=== PATIENT | female | born 1995 | race Caucasian/White ===

== ENCOUNTER 2018-06-25 14:21 | Emergency (ER) | payer OTHER, MEDICAID ==
[2018-06-25 14:34] VITALS: BP 136/80
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
--- NOTE | 2018-06-25 16:20 | CT ---
CT cervical spine Technique: Multiple axial sections were obtained from above C1 inferiorly to the mid T2 vertebral body. Reconstructed sagittal and coronal images were reviewed. Findings: Mild disc space narrowing is noted at C6-C7. Several incidental cysts are noted within the C6 vertebral body. Posterior skull base is intact. No fracture is identified. No bony central or bony neural foraminal stenosis is seen. No abnormal subluxation is seen. Impression: 1. Minimal degenerative change. 2. Nothing acute is seen on CT study of the cervical spine. Diagnostic code #2
--- NOTE | 2018-06-25 16:22 | CT ---
Head CT Technique: Multiple axial sections through the brain were obtained. Intravenous contrast was not utilized. Comparison: No previous intracranial imaging. Findings: Ventricles along with basal cisterns and sulci over the convexities are within normal limits for the patient's age. No abnormal parenchymal densities are seen. No evidence of intracranial hemorrhage. No midline shift or mass effect is seen. Bone window settings were reviewed which shows no acute calvarial abnormality. Visualized sinuses are clear. Impression: 1. Nothing acute is appreciated on noncontrast head CT study. Diagnostic code #1
--- NOTE | 2018-06-26 06:51 | CR ---
Chest: Two views of the chest were obtained. Comparison: Previous chest x-ray of 06/29/15. Heart size and mediastinum are normal. Lungs are clear. Mild pectus excavatum deformity is seen. Impression: 1. Mild pectus excavatum deformity. 2. Nothing acute is seen on two-view chest x-ray. Diagnostic code #2
== END 2018-06-25 17:06 | disposition home or self-care (01) ==
LOC: JD.ED 14:21
DX: S13.4XXA Sprain of ligaments of cervical spine, initial encounter (principal); F17.210 Nicotine dependence, cigarettes, uncomplicated; F41.9 Anxiety disorder, unspecified; V48.5XXA Car driver injured in noncollision transport accident in traffic accident, initial encounter
CPT/HCPCS: 70450; 70450-26; 71046; 71046-26; 72125; 72125-26; 99284-25

== ENCOUNTER 2020-04-22 18:11 | Emergency (ER) | payer BC, MEDICAID ==
[2020-04-22 18:19] VITALS: BP 117/81; PULSE 120
[2020-04-22] MEDS ORDERED: LORazepam 2 MG/ML SDV IVPUSH ONE (18:41)
[2020-04-22] MEDS ORDERED: Ondansetron 4 MG/2 ML SDV IVPUSH ONE (18:42)
[2020-04-22] MEDS ORDERED: Sodium Chloride 0.9% 1,000 ML IV ONE ×2 (19:06→21:59)
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
== END 2020-04-23 04:09 | disposition home or self-care (01) ==
LOC: JD.ED 18:11
DX: R41.82 Altered mental status, unspecified (principal); F19.129 Other psychoactive substance abuse with intoxication, unspecified; F17.210 Nicotine dependence, cigarettes, uncomplicated; Z88.8 Allergy status to other drugs, medicaments and biological substances
CPT/HCPCS: 36415; 80053; 80306; 80307; 83735; 85025; 96374; 96375; 99284; J2060; J2405; J7030

== ENCOUNTER 2020-09-01 16:02 | Emergency (ER) | payer BC, MEDICAID ==
[2020-09-01 16:36] VITALS: BP 124/96; PULSE 103
[2020-09-01] MEDS ORDERED: LORazepam 2 MG/ML SDV IVPUSH ONE (16:45)
[2020-09-01] MEDS ORDERED: Sodium Chloride 0.9% 10 ML Syringe FLUSH PRN (16:45)
--- NOTE | 2020-09-01 17:02 | EDM.PDOC ---
ED HPI GENERAL MEDICAL PROBLEM - General Chief Complaint: Abdominal Pain Stated Complaint: LOWER ABDOMINAL PAIN Time Seen by Provider: 09/01/20 16:27 Source of Information: Reports: Patient, RN Notes Reviewed History Limitations: Reports: No Limitations - History of Present Illness INITIAL COMMENTS - FREE TEXT/NARRATIVE: Patient is a 25-year-old female who presents to the ED for the evaluation of her pelvic symptoms. She notes that she has been having lower abdominal pain, that seems to focus to the right side for the last 2 days. She states that it kind of started in her back and then sat forward to her abdomen, she points to her very low pelvis as a source of pain. She has not been able to take anything at home that made the pain better or worse. She is having nausea and vomiting, and some diarrhea along with the pain. She states that she did start her period yesterday, but today it became very heavy with bright red blood and clots. She is having pelvic cramping and feels quite bloated. She also notes that she felt nauseous this morning and, she was puking and had a fever. She has no dysuria, frequency or urgency, but notes she has had a history of kidney functions in the past. She notes that the back pain started 3 days ago, and then the vaginal bleeding started after this. Patient notes that she has been having unprotected sex, so there is a chance that she could be . She states that she remembers her last period prior to this one, was in June. Lower Abdomen Pain Score (Numeric/FACES): 8 - Related Data Allergies Allergy/AdvReac Type Severity Reaction Status Date / Time pregabalin [From Lyrica] Allergy Severe Delusions Verified 09/01/20 16:36 sertraline [From Zoloft] Allergy Severe Sweating Verified 09/01/20 16:36 tramadol Allergy Severe Sweating Verified 09/01/20 16:36 Home Meds: Home Meds Acetaminophen [Tylenol] 2 tab PO ASDIRECTED PRN 08/07/19 [History] Multivitamin [Multi-Vitamin Daily] 1 tab PO DAILY 08/07/19 [History] Cefdinir [Omnicef] 300 mg PO BID 10 Days #20 cap 09/01/20 [Rx] Past Medical History HEENT History: Reports: Other (See Below) Genitourinary History: Reports: Other (See Below) Other Genitourinary History: Kidney infection 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: , 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 Musculoskeletal History: Reports: Back Pain, Chronic Neurological History: Reports: Other (See Below) Other Neuro History: pt states she had a stroke, and now her left arm randomly goes numb at times Psychiatric History: Reports: Anxiety Other Psychiatric History: Post depression Endocrine/Metabolic History: Reports: Hyperthyroidism Other Endocrine/Metabolic History: thyroid dysfunction is Other Hematologic History: anemia in - Past Surgical History HEENT Surgical History: Reports: Adenoidectomy, Naso-Sinus Surgery, Tonsillectomy Other HEENT Surgeries/Procedures: tubes placed bilateral ears Social & Family History - Family History Family Medical History: No Pertinent Family History HEENT: Reports: Cataract GI: Reports: Cirrhosis : Reports: Diabetic Nephropathy Musculoskeletal: Reports: Osteoarthritis, Other (See Below) Other Musculoskeletal Family History: carpal tunel Neurological: Reports: Migraines Dermatologic: Reports: Psoriasis Oncologic: Reports: Breast, Ovarian, Skin - Caffeine Use Caffeine Use: Reports: Energy Drinks, Soda ED ROS GENERAL - Review of Systems Review Of Systems: Comprehensive ROS is negative, except as noted in HPI. ED EXAM, RENAL/ - Physical Exam Exam: See Below Exam Limited By: No Limitations General Appearance: Alert, WD/WN, No Apparent Distress, Anxious (generalized) Respiratory/Chest: No Respiratory Distress, Lungs Clear, Normal Breath Sounds, No Accessory Muscle Use, Chest Non-Tender Cardiovascular: Normal Peripheral Pulses, Regular Rate, Rhythm, No Edema GI/Abdominal: Normal Bowel Sounds, Soft, No Distention, No Mass, Tender (RLQ/pelvic pain) Extremities: Normal Inspection, Normal Capillary Refill Neurological: Alert, Oriented, Normal Cognition, No Motor/Sensory Deficits Psychiatric: Anxious Skin Exam: Warm, Dry, Intact, Normal Color, No Rash Course - Vital Signs Last Recorded V/S: Last Vital Signs Temp 98.3 F 09/01/20 16:27 Pulse 103 H 09/01/20 16:27 Resp 18 09/01/20 16:27 BP 124/96 H 09/01/20 16:27 Pulse Ox 100 09/01/20 16:27 - Orders/Labs/Meds Orders: Active Orders 24 hr Category Date Time Status Peripheral IV Care [RC] . DIRECTED Care 09/01/20 16:45 Ordered Abdomen Pelvis w Cont [CT] Stat Exams 09/01/20 17:51 Ordered Sodium Chloride 0.9% [Saline Flush] Med 09/01/20 18:15 Active 10 ml FLUSH ASDIRECTED Sodium Chloride 0.9% [Saline Flush] Med 09/01/20 16:45 Ordered 10 ml FLUSH ASDIRECTED PRN Peripheral IV Insertion Adult [OM.PC] Routine Oth 09/01/20 16:45 Ordered Medication Orders Sodium Chloride (Sodium Chloride 0.9% 10 Ml Syringe) 10 ml FLUSH ASDIRECTED PRN PRN Reason: Keep Vein Open Sodium Chloride (Sodium Chloride 0.9% 10 Ml Syringe) 10 ml FLUSH ASDIRECTED FABIENNE Labs: Laboratory Tests 09/01/20 09/01/20 09/01/20 Range/Units 16:58 16:58 16:58 WBC 15.83 H (3.98-10.04) K/mm3 RBC 5.85 H (3.98-5.22) M/mm3 Hgb 16.0 H (11.2-15.7) gm/dl Hct 49.4 H (34.1-44.9) % MCV 84.4 (79.4-94.8) fl MCH 27.4 (25.6-32.2) pg MCHC 32.4 (32.2-35.5) g/dl RDW Std Deviation 43.6 (36.4-46.3) fL Plt Count 173 L (182-369) K/mm3 MPV 10.6 (9.4-12.3) fl Neutrophils % (Manual) 89 H (40-60) % Band Neutrophils % 1 (0-10) % Lymphocytes % (Manual) 6 L (20-40) % Atypical Lymphs % 0 % Monocytes % (Manual) 2 (2-10) % Eosinophils % (Manual) 2 (0.7-5.8) % Basophils % (Manual) 0 L (0.1-1.2) Platelet Estimate Adequate RBC Morph Comment Normal Sodium 137 (136-145) mEq/L Potassium 3.9 (3.5-5.1) mEq/L Chloride 98 (98-107) mEq/L Carbon Dioxide 25 (21-32) mEq/L Anion Gap 17.9 H (5-15) BUN 15 (7-18) mg/dL Creatinine 0.9 (0.55-1.02) mg/dL Est Cr Clr Drug Dosing 80.26 mL/min Estimated GFR (MDRD) > 60 (>60) mL/min BUN/Creatinine Ratio 16.7 (14-18) Glucose 113 H (74-106) mg/dL Calcium 9.0 (8.5-10.1) mg/dL Total Bilirubin 0.5 (0.2-1.0) mg/dL AST 11 L (15-37) U/L ALT 27 (14-59) U/L Alkaline Phosphatase 121 H (46-116) U/L C-Reactive Protein 7.0 H* (<1.0) mg/dL Total Protein 7.9 (6.4-8.2) g/dl Albumin 3.8 (3.4-5.0) g/dl Globulin 4.1 gm/dL Albumin/Globulin Ratio 0.9 L (1-2) HCG, Qual Negative (NEGATIVE) Urine Color (Yellow) Urine Appearance (Clear) Urine pH (5.0-8.0) Ur Specific [place] (1.005-1.030) Urine Protein (Negative) Urine Glucose (UA) (Negative) Urine Ketones (Negative) Urine Occult Blood (Negative) Urine Nitrite (Negative) Urine Bilirubin (Negative) Urine Urobilinogen (0.2-1.0) Ur Leukocyte Esterase (Negative) Urine RBC (0-5) /hpf Urine WBC (0-5) /hpf Ur Squamous Epith Cells (0-5) /hpf Urine Bacteria (FEW) /hpf Urine Mucus (FEW) /hpf Influenza Type A RNA (NEGATIVE) Influenza Type B RNA (NEGATIVE) SARS-CoV-2 RNA (YOSI) (NEGATIVE) 09/01/20 09/01/20 Range/Units 17:44 17:52 WBC (3.98-10.04) K/mm3 RBC (3.98-5.22) M/mm3 Hgb (11.2-15.7) gm/dl Hct (34.1-44.9) % MCV (79.4-94.8) fl MCH (25.6-32.2) pg MCHC (32.2-35.5) g/dl RDW Std Deviation (36.4-46.3) fL Plt Count (182-369) K/mm3 MPV (9.4-12.3) fl Neutrophils % (Manual) (40-60) % Band Neutrophils % (0-10) % Lymphocytes % (Manual) (20-40) % Atypical Lymphs % % Monocytes % (Manual) (2-10) % Eosinophils % (Manual) (0.7-5.8) % Basophils % (Manual) (0.1-1.2) Platelet Estimate RBC Morph Comment Sodium (136-145) mEq/L Potassium (3.5-5.1) mEq/L Chloride (98-107) mEq/L Carbon Dioxide (21-32) mEq/L Anion Gap (5-15) BUN (7-18) mg/dL Creatinine (0.55-1.02) mg/dL Est Cr Clr Drug Dosing mL/min Estimated GFR (MDRD) (>60) mL/min BUN/Creatinine Ratio (14-18) Glucose (74-106) mg/dL Calcium (8.5-10.1) mg/dL Total Bilirubin (0.2-1.0) mg/dL AST (15-37) U/L ALT (14-59) U/L Alkaline Phosphatase (46-116) U/L C-Reactive Protein (<1.0) mg/dL Total Protein (6.4-8.2) g/dl Albumin (3.4-5.0) g/dl Globulin gm/dL Albumin/Globulin Ratio (1-2) HCG, Qual (NEGATIVE) Urine Color Yellow (Yellow) Urine Appearance Slt cloudy H (Clear) Urine pH 6.0 (5.0-8.0) Ur Specific [place] 1.020 (1.005-1.030) Urine Protein Negative (Negative) Urine Glucose (UA) Negative (Negative) Urine Ketones Negative (Negative) Urine Occult Blood Trace-lysed H (Negative) Urine Nitrite Negative (Negative) Urine Bilirubin Negative (Negative) Urine Urobilinogen 0.2 (0.2-1.0) Ur Leukocyte Esterase 1+ H (Negative) Urine RBC 0-5 (0-5) /hpf Urine WBC 5-10 H (0-5) /hpf Ur Squamous Epith Cells 5-10 H (0-5) /hpf Urine Bacteria Few (FEW) /hpf Urine Mucus Many H (FEW) /hpf Influenza Type A RNA Negative (NEGATIVE) Influenza Type B RNA Negative (NEGATIVE) SARS-CoV-2 RNA (YOSI) Negative (NEGATIVE) Meds: Medications Generic Name Dose Route Start Last Admin Trade Name Shantel PRN Reason Stop Dose Admin Sodium Chloride 10 ml 09/01/20 16:45 Sodium Chloride 0.9% 10 Ml Syringe FLUSH ASDIRECTED PRN Keep Vein Open Sodium Chloride 10 ml 09/01/20 18:15 Sodium Chloride 0.9% 10 Ml Syringe FLUSH ASDIRECTED FABIENNE Discontinued Medications Generic Name Dose Route Start Last Admin Trade Name Shantel PRN Reason Stop Dose Admin Acetaminophen 650 mg 09/01/20 17:13 09/01/20 17:23 Acetaminophen 325 Mg Tab PO 09/01/20 17:14 650 mg NOW ONE Administration Diatrizoate Meglum/Diatrizoate Sod 120 ml 09/01/20 18:15 Diatrizoate Meglumine/Diatrizoate Sodium 37% 120 Ml Bottle PO 09/01/20 18:16 ONETIME ONE Ceftriaxone Sodium 2 gm/ 100 mls @ 200 mls/hr 09/01/20 19:56 09/01/20 20:14 Sodium Chloride IV 09/01/20 20:25 200 mls/hr ONETIME ONE Administration Iopamidol 100 ml 09/01/20 18:15 Iopamidol 612 Mg/Ml 100 Ml Bottle IVPUSH 09/01/20 18:16 ONETIME ONE Lorazepam 1 mg 09/01/20 16:45 09/01/20 17:07 Lorazepam 2 Mg/Ml Sdv IVPUSH 09/01/20 16:46 1 mg ONETIME ONE Administration - Re-Assessments/Exams Free Text/Narrative Re-Assessment/Exam: 09/01/20 17:20 Patient presents to the ED for her vaginal bleeding, abdominal pain, and low back pain. Initially suspect and rule out ectopic due to unprotected sex history. She is still having pain in her right lower quadrant, if her hCG test comes back negative, we will go forward with CT for possible appendicitis due to her fever and abdomen pain in her right lower quadrant. 09/01/20 17:52 Patient labs have started to result, her hCG is negative for today's purposes, so I have ordered abdomen pelvis CT with IV and oral contrast. CRP is elevated at 7.0, CMP is essentially unremarkable, CBC is still pending at this time. 09/01/20 18:04 CBC has come back, patient's white count is elevated at 15.3 with 89% neutrophils and 1 band. 09/01/20 19:59 CT has been performed, the appendix does appear to be normal. There is some form of nonspecific enterocolitis that may be present. Potential differential diagnosis include infectious processes, inflammatory processes as well as ischemic etiologies but considering the patient's age ischemic etiologies could be unlikely. Nonuniform anterior nephrogram on the left with other vague lucencies in the renal cortices bilaterally consider pyelonephritis. Patient's urinalysis was positive for leukocyte Estrace, and white blood cells along with squamous epithelial cells, this was a quick catheterized specimen, so it could be consistent with a pyelonephritis. We will go ahead and give the patient 2 g Rocephin, give her outpatient oral antibiotics after this and have her follow-up if she is not much better in 48 hours. Departure - Departure Time of Disposition: 20:41 Disposition: Home, Self-Care 01 Condition: Good Clinical Impression: Pyelonephritis - Discharge Information *PRESCRIPTION DRUG MONITORING PROGRAM REVIEWED*: No *COPY OF PRESCRIPTION DRUG MONITORING REPORT IN PATIENT LUCY: No Prescriptions: Cefdinir [Omnicef] 300 mg PO BID 10 Days #20 cap Instructions: Pyelonephritis, Adult, [id number] Referrals: PCP,None [Primary Care Provider] - Forms: ED Department Discharge Additional Instructions: You have been evaluated in the ED for your urinary symptoms. Your urinalysis was consistent with an acute urinary tract infection. Your urine was sent for culture, and you will be notified if you should need a change in your antibiotic. This may take up to [address] also demonstrated signs of pyelonephritis, which is a kidney infection. You have been given a prescription for Omnicef (cefdinir), 300 mg 1 tablet 2 times a day for 10 days. Please note that the antibiotics can take up to 48 hours to start working. You were however given a dose of IV Rocephin, which is an antibiotic that is similar to Omnicef in the ER, to start your antibiotic therapy. Please increase your oral fluid intake and try to stay adequately hydrated. Please monitor your symptoms, if your pain is not getting much better, within 24 to 48 hours I highly recommend you seek care for reevaluation to make sure that the antibiotics are doing what they are supposed to do. If you have any increase in fever, nausea/vomiting, recommend you again return to the ER for reevaluation. You may take some loperamide (Imodium), [id number] for the diarrhea stools that you are having. Please take per cellular equipment repairer instructions on the back of the bottle. Please return to the ED if your symptoms change or worsen. Sepsis Event Note (ED) - Evaluation Sepsis Screening Result: No Definite Risk - Focused Exam Vital Signs: Vital Signs Temp Pulse Resp BP Pulse Ox 09/01/20 16:27 98.3 F 103 H 18 124/96 H 100 - My Orders Last 24 Hours: My Active Orders 09/01/20 16:45 Peripheral IV Care [RC] . DIRECTED Sodium Chloride 0.9% [Saline Flush] 10 ml FLUSH ASDIRECTED PRN Peripheral IV Insertion Adult [OM.PC] Routine 09/01/20 17:51 Abdomen Pelvis w Cont [CT] Stat 09/01/20 18:15 Sodium Chloride 0.9% [Saline Flush] 10 ml FLUSH ASDIRECTED - Assessment/Plan Last 24 Hours: My Active Orders 09/01/20 16:45 Peripheral IV Care [RC] . DIRECTED Sodium Chloride 0.9% [Saline Flush] 10 ml FLUSH ASDIRECTED PRN Peripheral IV Insertion Adult [OM.PC] Routine 09/01/20 17:51 Abdomen Pelvis w Cont [CT] Stat 09/01/20 18:15 Sodium Chloride 0.9% [Saline Flush] 10 ml FLUSH ASDIRECTED
[2020-09-01] MEDS ORDERED: Acetaminophen 325 MG Tab PO ONE (17:13)
[2020-09-01] MEDS ORDERED: Iopamidol 612 MG/ML 100 ML Bottle IVPUSH ONE (18:15)
[2020-09-01] MEDS ORDERED: Sodium Chloride 0.9% 10 ML Syringe FLUSH SCH (18:15)
[2020-09-01] MEDS ORDERED: Diatrizoate Meglumine/Diatrizoate Sodium 37% 120 ML Bottle PO ONE (18:15)
[2020-09-01 18:44] LABS: CORONAVIRUS COVID-19 NAA NEGATIVE (NEGATIVE)
[2020-09-01] MEDS ORDERED: cefTRIAXone 2 GM in Sodium Chloride 0.9% 100 ML IV ONE (19:56)
--- NOTE | 2020-09-03 11:31 | CT ---
CT abdomen and pelvis Technique: Multiple axial sections were obtained from above the dome of the diaphragm inferiorly through the pubic symphysis. Intravenous and oral contrast was utilized. Delayed images were also obtained through the pelvis and bladder. Reconstructed coronal and sagittal images were obtained. Comparison: No prior abdominal CT study is available. Findings: There is diminished enhancement within a portion of the left kidney. This is most likely due to pyelonephritis on the left side. Please correlate with the patient's symptoms. Delayed images show contrast within both ureters and within the bladder. Visualized lung bases shows nothing acute. Liver contains no focal abnormality. Gallbladder contains no calcified gallstones. Spleen is within normal limits. Adrenal glands show no nodule. Pancreas is within normal limits. Small amount of fluid is scattered with small bowel and colon. Appendix is seen and appears normal. Bone window settings were reviewed which appear within normal limits for the patient's age. Impression: 1. Findings highly suspicious for left-sided pyelonephrosis with decreased enhancement of the left kidney. 2. Slight increased fluid within portions of the small bowel and colon. Minimal associated enteritis is possible. 3. No other acute abnormality is appreciated. Diagnostic code #3 I agree with preliminary report from [facility], finalized on 09/01/20, 8:52 PM CDT
== END 2020-09-01 21:00 | disposition home or self-care (01) ==
LOC: JD.ED 16:02
DX: N12 Tubulo-interstitial nephritis, not specified as acute or chronic (principal); D72.829 Elevated white blood cell count, unspecified; Z88.8 Allergy status to other drugs, medicaments and biological substances; Z88.5 Allergy status to narcotic agent; Z20.822 Contact with and (suspected) exposure to COVID-19
CPT/HCPCS: 0240U; 36415; 74177; 80053; 81001; 84703; 85007; 85027; 86140; 87086; 87088; 87186; 96365; 96375; 99284; A9270; J0696; J2060; Q9963

== ENCOUNTER 2020-12-02 03:39 | Emergency (ER) | payer BC, MEDICAID ==
[2020-12-02] MEDS ORDERED: Ondansetron 4 MG/2 ML SDV IVPUSH ONE (04:02)
[2020-12-02] MEDS ORDERED: Sodium Chloride 0.9% 1,000 ML IV STA (04:02)
[2020-12-02] MEDS ORDERED: Sodium Chloride 0.9% 10 ML Syringe FLUSH PRN ×2 (04:02→07:01)
[2020-12-02] MEDS ORDERED: HYDROmorphone 1 MG/ML Syringe IVPUSH ONE ×3 (04:04→07:46)
--- NOTE | 2020-12-02 05:16 | EDM.PDOC ---
ED HPI GENERAL MEDICAL PROBLEM - General Chief Complaint: Abdominal Pain Stated Complaint: ABDOMINAL PAIN Time Seen by Provider: 12/02/20 03:59 Source of Information: Reports: Patient History Limitations: Reports: No Limitations - History of Present Illness INITIAL COMMENTS - FREE TEXT/NARRATIVE: The patient presents with nausea, vomiting and abdominal pain. This started yesterday and this morning it is much worse. She has no fever, chills, cough, chest pain, shortness of breath, dysuria or hematuria. The pain radiated to her right mid to low back. She still has her appendix and gallbladder. She has no history of gallstones. She could be . Onset: Gradual Duration: Day(s): (2) Location: Reports: Abdomen, Back Quality: Reports: Sharp Severity: Severe Improves with: Reports: None Worsens with: Reports: None Associated Symptoms: Reports: Nausea/Vomiting. Denies: Chest Pain, Cough, Fever/Chills, Headaches, Shortness of Breath Abdomen Pain Score (Numeric/FACES): 10 - Related Data Allergies Allergy/AdvReac Type Severity Reaction Status Date / Time pregabalin [From Lyrica] Allergy Severe Delusions Verified 12/02/20 03:54 sertraline [From Zoloft] Allergy Severe Sweating Verified 12/02/20 03:54 tramadol Allergy Severe Sweating Verified 12/02/20 03:54 Home Meds: Home Meds Acetaminophen [Tylenol] 2 tab PO ASDIRECTED PRN 08/07/19 [History] Multivitamin [Multi-Vitamin Daily] 1 tab PO DAILY 08/07/19 [History] Cefdinir [Omnicef] 300 mg PO BID 10 Days #20 cap 09/01/20 [Rx] Dicyclomine [Bentyl] 10 mg PO TID PRN #20 cap 12/02/20 [Rx] Ondansetron [Zofran ODT] 4 mg PO Q6H PRN #20 tab.dis 12/02/20 [Rx] Past Medical History HEENT History: Reports: Other (See Below) Genitourinary History: Reports: Other (See Below) Other Genitourinary History: Kidney infection 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 REMOVER History: Reports: , Spontaneous Musculoskeletal History: Reports: Back Pain, Chronic Neurological History: Reports: Other (See Below) Other Neuro History: pt states she had a stroke, and now her left arm randomly goes numb at times Psychiatric History: Reports: Anxiety Other Psychiatric History: Post depression Endocrine/Metabolic History: Reports: Hyperthyroidism Other Endocrine/Metabolic History: thyroid dysfunction is Other Hematologic History: anemia in - Infectious Disease History Infectious Disease History: Reports: None - Past Surgical History HEENT Surgical History: Reports: Adenoidectomy, Naso-Sinus Surgery, Tonsillectomy Other HEENT Surgeries/Procedures: tubes placed bilateral ears Female Surgical History: Reports: Cystectomy, Other (See Below) Other Female Surgeries/Procedures: cysts removed from ovaries and fallopian tubes Social & Family History - Family History Family Medical History: No Pertinent Family History HEENT: Reports: Cataract GI: Reports: Cirrhosis : Reports: Diabetic Nephropathy Musculoskeletal: Reports: Osteoarthritis, Other (See Below) Other Musculoskeletal Family History: carpal tunel Neurological: Reports: Migraines Dermatologic: Reports: Psoriasis Oncologic: Reports: Breast, Ovarian, Skin - Tobacco Use Tobacco Use Status *Q: Current Every Day Tobacco User Years of Tobacco use: 10 Packs/Tins Daily: 1 - Caffeine Use Caffeine Use: Reports: Soda - Recreational Drug Use Recreational Drug Use: Yes Recreational Drug Use Frequency: Socially ED ROS GENERAL - Review of Systems Review Of Systems: See Below Constitutional: Reports: No Symptoms HEENT: Reports: No Symptoms Respiratory: Reports: No Symptoms Cardiovascular: Reports: No Symptoms Endocrine: Reports: No Symptoms GI/Abdominal: Reports: Abdominal Pain, Nausea, Vomiting. Denies: Diarrhea : Reports: No Symptoms Musculoskeletal: Reports: No Symptoms ED EXAM, GI/ABD - Physical Exam Exam: See Below Exam Limited By: No Limitations General Appearance: Alert, Moderate Distress Ears: Normal External Exam Nose: Normal Inspection Head: Atraumatic, Normocephalic Neck: Normal Inspection Respiratory/Chest: No Respiratory Distress, Lungs Clear, Normal Breath Sounds Cardiovascular: Regular Rate, Rhythm, No Edema, No Murmur GI/Abdominal Exam: Soft, No Organomegaly, No Mass, Tender (Severe left lower abdominal pain radiating to her back) Course - Vital Signs Last Recorded V/S: Last Vital Signs Temp 98.2 F 12/02/20 08:18 Pulse 124 H 12/02/20 08:18 Resp 18 12/02/20 08:18 BP 136/92 H 12/02/20 08:18 Pulse Ox 96 12/02/20 08:18 - Orders/Labs/Meds Orders: Active Orders 24 hr Category Date Time Status Peripheral IV Care [RC] . DIRECTED Care 12/02/20 04:03 Active Sodium Chloride 0.9% [Saline Flush] Med 12/02/20 04:02 Active 10 ml FLUSH ASDIRECTED PRN Sodium Chloride 0.9% [Saline Flush] Med 12/02/20 07:01 Active 10 ml FLUSH ONETIME PRN ED Antiemetic Medication Reflex [OM.PC] Stat Oth 12/02/20 04:03 Ordered Peripheral IV Insertion Adult [OM.PC] Stat Ot 12/02/20 04:02 Ordered Medication Orders Sodium Chloride (Sodium Chloride 0.9% 10 Ml Syringe) 10 ml FLUSH ASDIRECTED PRN PRN Reason: Keep Vein Open Last Admin: 12/02/20 04:10 Dose: 10 ml Documented by: JANN Sodium Chloride (Sodium Chloride 0.9% 10 Ml Syringe) 10 ml FLUSH ONETIME PRN PRN Reason: Keep Vein Open Last Admin: 12/02/20 07:48 Dose: 10 ml Documented by: ANN Labs: Laboratory Tests 12/02/20 12/02/20 12/02/20 Range/Units 03:55 03:55 03:55 WBC 15.57 H (3.98-10.04) K/mm3 RBC 5.08 (3.98-5.22) M/mm3 Hgb 14.4 D (11.2-15.7) gm/dl Hct 44.2 (34.1-44.9) % MCV 87.0 (79.4-94.8) fl MCH 28.3 (25.6-32.2) pg MCHC 32.6 (32.2-35.5) g/dl RDW Std Deviation 48.2 H (36.4-46.3) fL Plt Count 176 L (182-369) K/mm3 MPV 10.3 (9.4-12.3) fl Neut % (Auto) 94.1 H (34.0-71.1) % Lymph % (Auto) 3.8 L (19.3-51.7) % [place] % (Auto) 1.7 L (4.7-12.5) % Eos % (Auto) 0.2 L (0.7-5.8) Baso % (Auto) 0.1 (0.1-1.2) % Neut # (Auto) 14.65 H (1.56-6.13) K/mm3 Lymph # (Auto) 0.59 L (1.18-3.74) K/mm3 [place] # (Auto) 0.27 (0.24-0.36) K/mm3 Eos # (Auto) 0.03 L (0.04-0.36) K/mm3 Baso # (Auto) 0.01 (0.01-0.08) K/mm3 Manual Slide Review Abnormal smear Sodium 133 L (136-145) mEq/L Potassium 4.0 (3.5-5.1) mEq/L Chloride 98 (98-107) mEq/L Carbon Dioxide 27 (21-32) mEq/L Anion Gap 12.0 (5-15) BUN 11 (7-18) mg/dL Creatinine 0.9 (0.55-1.02) mg/dL Est Cr Clr Drug Dosing 78.00 mL/min Estimated GFR (MDRD) > 60 (>60) mL/min BUN/Creatinine Ratio 12.2 L (14-18) Glucose 97 (70-99) mg/dL Calcium 9.3 (8.5-10.1) mg/dL Total Bilirubin 0.8 (0.2-1.0) mg/dL AST 15 (15-37) U/L ALT 25 (14-59) U/L Alkaline Phosphatase 94 (46-116) U/L Total Protein 7.6 (6.4-8.2) g/dl Albumin 3.8 (3.4-5.0) g/dl Globulin 3.8 gm/dL Albumin/Globulin Ratio 1.0 (1-2) Lipase 30 L (73-393) U/L HCG, Qual Negative (NEGATIVE) Urine Color (Yellow) Urine Appearance (Clear) Urine pH (5.0-8.0) Ur Specific [place] (1.005-1.030) Urine Protein (Negative) Urine Glucose (UA) (Negative) Urine Ketones (Negative) Urine Occult Blood (Negative) Urine Nitrite (Negative) Urine Bilirubin (Negative) Urine Urobilinogen (0.2-1.0) Ur Leukocyte Esterase (Negative) Urine RBC (0-5) /hpf Urine WBC (0-5) /hpf Ur Epithelial Cells (0-5) /hpf Calcium Oxalate Crystal (NONE) Urine Bacteria (FEW) /hpf Urine Mucus (FEW) /hpf Urine Opiates Screen (YDKKQP=411) Ur Buprenorphine Scrn (CUTOFF=10) Ur Oxycodone Screen (RFD6FZ=768) Urine Methadone Screen (HMPIKU=003) Ur Propoxyphene Screen (HCXWDI=197) Ur Barbiturates Screen (QMVAVR=726) Ur Tricyclics Screen (JKYARE=407) Ur Phencyclidine Scrn (CUTOFF=25) Ur Amphetamine Screen (SZCDXQ=231) U Methamphetamines Scrn (SWOVEL=150) U Benzodiazepines Scrn (FXFLLJ=420) U Cocaine Metab Screen (NXGZPG=912) U Marijuana (THC) Screen (CUTOFF=50) 12/02/20 12/02/20 Range/Units 04:02 05:05 WBC (3.98-10.04) K/mm3 RBC (3.98-5.22) M/mm3 Hgb (11.2-15.7) gm/dl Hct (34.1-44.9) % MCV (79.4-94.8) fl MCH (25.6-32.2) pg MCHC (32.2-35.5) g/dl RDW Std Deviation (36.4-46.3) fL Plt Count (182-369) K/mm3 MPV (9.4-12.3) fl Neut % (Auto) (34.0-71.1) % Lymph % (Auto) (19.3-51.7) % [place] % (Auto) (4.7-12.5) % Eos % (Auto) (0.7-5.8) Baso % (Auto) (0.1-1.2) % Neut # (Auto) (1.56-6.13) K/mm3 Lymph # (Auto) (1.18-3.74) K/mm3 [place] # (Auto) (0.24-0.36) K/mm3 Eos # (Auto) (0.04-0.36) K/mm3 Baso # (Auto) (0.01-0.08) K/mm3 Manual Slide Review Sodium (136-145) mEq/L Potassium (3.5-5.1) mEq/L Chloride (98-107) mEq/L Carbon Dioxide (21-32) mEq/L Anion Gap (5-15) BUN (7-18) mg/dL Creatinine (0.55-1.02) mg/dL Est Cr Clr Drug Dosing mL/min Estimated GFR (MDRD) (>60) mL/min BUN/Creatinine Ratio (14-18) Glucose (70-99) mg/dL Calcium (8.5-10.1) mg/dL Total Bilirubin (0.2-1.0) mg/dL AST (15-37) U/L ALT (14-59) U/L Alkaline Phosphatase (46-116) U/L Total Protein (6.4-8.2) g/dl Albumin (3.4-5.0) g/dl Globulin gm/dL Albumin/Globulin Ratio (1-2) Lipase (73-393) U/L HCG, Qual (NEGATIVE) Urine Color Yellow (Yellow) Urine Appearance Clear (Clear) Urine pH 6.0 (5.0-8.0) Ur Specific [place] 1.025 (1.005-1.030) Urine Protein 1+ H (Negative) Urine Glucose (UA) Negative (Negative) Urine Ketones 1+ H (Negative) Urine Occult Blood 3+ H (Negative) Urine Nitrite Negative (Negative) Urine Bilirubin 1+ H (Negative) Urine Urobilinogen 1.0 (0.2-1.0) Ur Leukocyte Esterase Negative (Negative) Urine RBC 0-5 (0-5) /hpf Urine WBC 0-5 (0-5) /hpf Ur Epithelial Cells 0-5 (0-5) /hpf Calcium Oxalate Crystal Many H (NONE) Urine Bacteria Many H (FEW) /hpf Urine Mucus Many H (FEW) /hpf Urine Opiates Screen Presumptive positive H (HLDUZS=858) Ur Buprenorphine Scrn Negative (CUTOFF=10) Ur Oxycodone Screen Negative (KKF8NM=145) Urine Methadone Screen Negative (KRGNUN=377) Ur Propoxyphene Screen Negative (VQYBGQ=762) Ur Barbiturates Screen Negative (WICVDS=839) Ur Tricyclics Screen Negative (NSJLQP=049) Ur Phencyclidine Scrn Negative (CUTOFF=25) Ur Amphetamine Screen Presumptive positive H (CZVDDJ=853) U Methamphetamines Scrn Presumptive positive H (ZPGFZU=299) U Benzodiazepines Scrn Negative (ALRBCU=714) U Cocaine Metab Screen Negative (LMCNQT=111) U Marijuana (THC) Screen Presumptive positive H (CUTOFF=50) Meds: Medications Generic Name Dose Route Start Last Admin Trade Name Freq PRN Reason Stop Dose Admin Sodium Chloride 10 ml 12/02/20 04:02 12/02/20 04:10 Sodium Chloride 0.9% 10 Ml Syringe FLUSH 10 ml ASDIRECTED PRN Administration Keep Vein Open Sodium Chloride 10 ml 12/02/20 07:01 12/02/20 07:48 Sodium Chloride 0.9% 10 Ml Syringe FLUSH 10 ml ONETIME PRN Administration Keep Vein Open Discontinued Medications Generic Name Dose Route Start Last Admin Trade Name Freq PRN Reason Stop Dose Admin Diatrizoate Meglum/Diatrizoate Sod 40 ml 12/02/20 07:01 12/02/20 07:48 Diatrizoate Meglumine/Diatrizoate Sodium 37% 120 Ml Bottle PO 12/02/20 07:02 45 ml ONETIME ONE Administration Hydromorphone HCl 1 mg 12/02/20 04:04 12/02/20 04:10 Hydromorphone 1 Mg/Ml Syringe IVPUSH 12/02/20 04:05 1 mg ONETIME ONE Administration Hydromorphone HCl 1 mg 12/02/20 04:58 12/02/20 05:03 Hydromorphone 1 Mg/Ml Syringe IVPUSH 12/02/20 04:59 0.5 mg ONETIME ONE Administration Hydromorphone HCl 1 mg 12/02/20 07:46 12/02/20 07:50 Hydromorphone 1 Mg/Ml Syringe IVPUSH 12/02/20 07:47 1 mg ONETIME ONE Administration Sodium Chloride 1,000 mls @ 1,000 mls/hr 12/02/20 04:02 12/02/20 04:10 Normal Saline IV 12/02/20 05:01 1,000 mls/hr .BOLUS STA Administration Iopamidol 100 ml 12/02/20 07:01 12/02/20 07:48 Iopamidol 612 Mg/Ml 100 Ml Bottle IVPUSH 12/02/20 07:02 100 ml ONETIME ONE Administration Ondansetron HCl 4 mg 12/02/20 04:02 12/02/20 04:10 Ondansetron 4 Mg/2 Ml Sdv IVPUSH 12/02/20 04:03 4 mg ONETIME ONE Administration - Re-Assessments/Exams Free Text/Narrative Re-Assessment/Exam: 12/02/20 05:14 I ordered an IV NS bolus, zofran 4mg IV, dilaudid 1mg IV, labs, UA and a CT of her abdomen and pelvis without contrast. 12/02/20 05:16 Her WBC is elevated at 15.57. Her Na is a little low at 133. Her lipase is low at 30. Her HCG is negative. She needed some more dilaudid before the scan. 12/02/20 06:44 Her UA shows no UTI. Her CT shows mildly dilated loops of small bowel with air- fluid levels. More distally the small bowel tapers. The appendix is not identified. Appendicitis cannot be ruled out. Consider repeat study with oral and intravenous contrast after oral contrast reaches the rectum. I called Dr Ro our general surgeon and he recommended I get the CT with oral and IV contrast. I have put that order in. The patient did mention that she just finished her period and was passing some clots. She has no pelvic pain. 12/02/20 07:00 I will order a transvaginal no OB US. It is change of shift. Dr Moise to take over. 12/02/20 07:16 The urine drug screen was positive for opiates, methamphetamine, amphetamine, and marijuana. 12/02/20 08:[address] shows contrast within the small bowel which shows bowel wall thickening. No definite findings of small bowel obstruction are seen. Findings most likely represent changes of gastroenteritis. Please correlate with the patient's symptoms. Other etiology could be a partial small bowel obstruction. Mild increased stool within the left colon as well as rectosigmoid region. No other acute abnormality is appreciated on CT study of the abdomen and pelvis. 12/02/20 08:51 Her US shows minimal free fluid within the pelvis most likely physiologic. Small amount of fluid filled bowel within the right adnexa most likely incidental. No additional abnormality is appreciated on pelvic ultrasound study. She feels better. It appears she may have a partial small bowel obstruction. She was positive for methamphetamines. She said she has not used since earlier in the month. 12/02/20 08:[address] Ro back and he said there is really nothing surgical to be done. He thought medical management if the patient continued to have pain and could not keep anything down. 12/02/20 09:[address] Mena and he did not think she would meet criteria for admission. The patient is willing to try this at home. I will give her some zofran for the nausea and vomiting. Departure - Departure Time of Disposition: 09:15 Disposition: Home, Self-Care 01 Condition: Good Clinical Impression: Abdominal pain Qualifiers: Abdominal location: lower abdomen, unspecified Qualified Code(s): R10.30 - Lower abdominal pain, unspecified Vomiting Qualifiers: Vomiting type: unspecified Vomiting Intractability: non-intractable Nausea presence: with nausea Qualified Code(s): R11.2 - Nausea with vomiting, unspecified - Discharge Information *PRESCRIPTION DRUG MONITORING PROGRAM REVIEWED*: Not Applicable *COPY OF PRESCRIPTION DRUG MONITORING REPORT IN PATIENT LUCY: Not Applicable Prescriptions: Dicyclomine [Bentyl] 10 mg PO TID PRN #20 cap PRN Reason: Pain Ondansetron [Zofran ODT] 4 mg PO Q6H PRN #20 tab.dis PRN Reason: Nausea\vomiting Referrals: PCP,None [Primary Care Provider] - Erika Alcantara, RAJESH [Nurse Practitioner] - 1 Week Forms: ED Department Discharge Additional Instructions: Take zofran every 6 hours as needed for nausea and vomiting. Drink plenty of fluids. Take the bentyl 10mg 3 times per day as needed for abdominal pain. Follow up with Erika Alcantara in 1 week. Please return if you are worse. Sepsis Event Note (ED) - Evaluation Sepsis Screening Result: No Definite Risk - Focused Exam Vital Signs: Vital Signs Temp Pulse Resp BP Pulse Ox 12/02/20 08:18 98.2 F 124 H 18 136/92 H 96 12/02/20 07:17 98.5 F 130 H 18 76/39 L 97 12/02/20 03:49 97.3 F 124 H 20 131/89 96 - My Orders Last 24 Hours: My Active Orders 12/02/20 04:02 Sodium Chloride 0.9% [Saline Flush] 10 ml FLUSH ASDIRECTED PRN Peripheral IV Insertion Adult [OM.PC] Stat 12/02/20 04:03 Peripheral IV Care [RC] . DIRECTED ED Antiemetic Medication Reflex [OM.PC] Stat 12/02/20 07:01 Sodium Chloride 0.9% [Saline Flush] 10 ml FLUSH ONETIME PRN - Assessment/Plan Last 24 Hours: My Active Orders 12/02/20 04:02 Sodium Chloride 0.9% [Saline Flush] 10 ml FLUSH ASDIRECTED PRN Peripheral IV Insertion Adult [OM.PC] Stat 12/02/20 04:03 Peripheral IV Care [RC] . DIRECTED ED Antiemetic Medication Reflex [OM.PC] Stat 12/02/20 07:01 Sodium Chloride 0.9% [Saline Flush] 10 ml FLUSH ONETIME PRN
[2020-12-02] MEDS ORDERED: Iopamidol 612 MG/ML 100 ML Bottle IVPUSH ONE (07:01)
[2020-12-02] MEDS ORDERED: Diatrizoate Meglumine/Diatrizoate Sodium 37% 120 ML Bottle PO ONE (07:01)
--- NOTE | 2020-12-02 08:18 | CT ---
CT abdomen and pelvis Technique: Multiple axial sections were obtained from above the dome of the diaphragm inferiorly through the pubic symphysis. Intravenous and oral contrast was utilized. Reconstructed coronal and sagittal images were obtained. Comparison: Prior CT noncontrast study performed earlier on the same day (5:12 AM). Additional CT abdomen and pelvis study performed with IV and oral contrast of 09/01/20 is available. Findings: Visualized lung bases show nothing acute. Liver contains no focal abnormality. Minimal fat is noted next to the ligamentum teres fissure as an incidental note. Spleen is normal in size. Pancreas shows no discrete abnormality. Adrenal glands contain no nodule. Right and left kidneys show symmetric contrast enhancement without hydronephrosis or mass. Abdominal aorta shows no aneurysm. Gallbladder contains no calcified gallstones. There is contrast seen within the small bowel. There is scattered small bowel wall thickening being noted with scattered areas of small bowel dilatation being seen. Prior study showed fluid within the distal small bowel which has slightly diminished in the interim. Minimal free fluid is seen within the pelvis believed to be physiologic. Appendix is not visualized but no inflammatory change of appendicitis is seen. Mild increased stool is seen within the left colon and rectosigmoid regions. Bone window settings were reviewed which show no acute abnormality. Impression: 1. Contrast within the small bowel which shows bowel wall thickening. No definite findings of small bowel obstruction are seen. Findings most likely represent changes of gastroenteritis. Please correlate with the patient's symptoms. Other etiology could be a partial small bowel obstruction. 2. Mild increased stool within the left colon as well as rectosigmoid region. 3. No other acute abnormality is appreciated on CT study of the abdomen and pelvis. Diagnostic code #3
--- NOTE | 2020-12-02 08:18 | CT ---
CT abdomen and pelvis Technique: Multiple axial sections were obtained from above the dome of the diaphragm inferiorly through the pubic symphysis. Intravenous and oral contrast were not utilized. Reconstructed coronal and sagittal images were obtained. Findings: Visualized lung bases show nothing acute. Noncontrast appearance of the liver shows no focal abnormality. Spleen size is normal. Food material is noted within the stomach. Adrenal glands show no nodule. Gallbladder contains no calcified gallstones. Kidneys show no definite abnormal calcifications. No ureteral dilatation or ureteral calcification is seen. No bladder calculi are seen. No discrete abnormality is appreciated within the pancreas. Abdominal aorta shows no aneurysm. No retroperitoneal adenopathy is seen. No mesenteric abnormalities are seen. No pelvic mass or adenopathy is seen. There is slightly prominent fluid within the distal small bowel which may relate to eating habits although difficult to exclude mild gastroenteritis. Appendix is not definitely visualized but no inflammatory change is seen to indicate appendicitis. Bone window settings were reviewed which appear within normal limits for the patient's age. Impression: 1. Mild prominence of fluid within the distal small bowel. This may relate to ingestion of fluid contents versus mild gastroenteritis. 2. Appendix is not visualized. No inflammatory change is seen to indicate definite appendicitis. 3. No ureteral calculi or other acute abnormality is appreciated. Diagnostic code #2 I mostly agree with preliminary report from [facility], finalized on 12/02/20 CDT, code 2
--- NOTE | 2020-12-02 08:41 | US ---
Pelvic ultrasound: Multiple real-time images were obtained transvaginally. Comparison: No prior pelvic ultrasound is available Uterus is anteverted. No myometrial abnormality is appreciated. Endometrial thickness is normal at 5 mm. Normal follicles are seen within both ovaries. Minimal free fluid is seen. Small amount of fluid filled bowel is noted within the right adnexa. Measurements: Right ovary: 4.7 x 1.3 x 3.4 cm Left ovary: 2.6 x 2.1 x 1.8 cm Uterus: Length 8.6 cm, AP height 4.5 cm, transverse width 5.6 cm Impression: 1. Minimal free fluid within the pelvis most likely physiologic. 2. Small amount of fluid filled bowel within the right adnexa most likely incidental. 3. No additional abnormality is appreciated on pelvic ultrasound study. Diagnostic code #2
[2020-12-02 09:30] VITALS: BP 142/85; PULSE 126
== END 2020-12-02 09:30 | disposition home or self-care (01) ==
LOC: JD.ED 03:39
DX: R10.32 Left lower quadrant pain (principal); R11.2 Nausea with vomiting, unspecified; Z88.8 Allergy status to other drugs, medicaments and biological substances; Z88.5 Allergy status to narcotic agent; Z72.0 Tobacco use
CPT/HCPCS: 36415; 74176; 74177; 76830; 80053; 80306; 81001; 83690; 84703; 85025; 96374; 96375; 96376; 99284; J1170; J2405; J7030; Q9963; Q9967

== ENCOUNTER 2020-12-02 18:55 | Observation (INO) | payer BC, MEDICAID ==
[2020-12-02] MEDS ORDERED: Sodium Chloride 0.9% 10 ML Syringe FLUSH PRN (19:32)
[2020-12-02] MEDS ORDERED: HYDROmorphone 0.5 MG/0.5 ML Syringe IVPUSH ONE (19:33)
[2020-12-02] MEDS ORDERED: Sodium Chloride 0.9% 1,000 ML IV STA (19:33)
[2020-12-02] MEDS ORDERED: HYDROmorphone 1 MG/ML Syringe IVPUSH ONE (19:34)
--- NOTE | 2020-12-02 19:48 | EDM.PDOC ---
ED HPI GENERAL MEDICAL PROBLEM - General Chief Complaint: Abdominal Pain Stated Complaint: BODY PAIN Time Seen by Provider: 12/02/20 19:11 Source of Information: Reports: Patient, RN Notes Reviewed History Limitations: Reports: No Limitations - History of Present Illness INITIAL COMMENTS - FREE TEXT/NARRATIVE: Patient is a 25-year-old female returning to the emergency department with complaints of severe abdominal pain with radiation up into her right chest. Reports that it hurts to take a deep breath. She has not been passing any gas and reports vomiting each time she tries to drink fluids. She was seen in this emergency department earlier this morning. CT imaging was done at that time and results suggested gastroenteritis versus possible partial small bowel obstru ction. Patient was discharged home with Zofran and dicyclomine. She reports that her pain has worsened. Denies any fever or chills. She has not had a bowel movement for the last 2 days. 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: Other (see below) Other Treatments AIRCRAFT SEAT UPHOLSTERER: zofran and dicyclomine Lower Abdomen Pain Score (Numeric/FACES): 10 - Related Data Allergies Allergy/AdvReac Type Severity Reaction Status Date / Time pregabalin [From Lyrica] Allergy Severe Delusions Verified 12/02/20 21:19 sertraline [From Zoloft] Allergy Severe Sweating Verified 12/02/20 21:19 tramadol Allergy Severe Sweating Verified 12/02/20 21:19 Home Meds: Home Meds Acetaminophen [Tylenol] 2 tab PO ASDIRECTED PRN 08/07/19 [History] Multivitamin [Multi-Vitamin Daily] 1 tab PO DAILY 08/07/19 [History] Dicyclomine [Bentyl] 10 mg PO TID PRN #20 cap 12/02/20 [Rx] Ondansetron [Zofran ODT] 4 mg PO Q6H PRN #20 tab.dis 12/02/20 [Rx] Past Medical History HEENT History: Reports: Other (See Below) Genitourinary History: Reports: Other (See Below) Other Genitourinary History: Kidney infection 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: , 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 Musculoskeletal History: Reports: Back Pain, Chronic Neurological History: Reports: Other (See Below) Other Neuro History: pt states she had a stroke, and now her left arm randomly goes numb at times Psychiatric History: Reports: Anxiety Other Psychiatric History: Post depression Endocrine/Metabolic History: Reports: Hyperthyroidism Other Endocrine/Metabolic History: thyroid dysfunction is Other Hematologic History: anemia in - Infectious Disease History Infectious Disease History: Reports: None - Past Surgical History HEENT Surgical History: Reports: Adenoidectomy, Naso-Sinus Surgery, Tonsillectomy Other HEENT Surgeries/Procedures: tubes placed bilateral ears Female Surgical History: Reports: Cystectomy, Other (See Below) Other Female Surgeries/Procedures: cysts removed from ovaries and fallopian tubes Social & Family History - Family History Family Medical History: No Pertinent Family History HEENT: Reports: Cataract GI: Reports: Cirrhosis : Reports: Diabetic Nephropathy Musculoskeletal: Reports: Osteoarthritis, Other (See Below) Other Musculoskeletal Family History: carpal tunel Neurological: Reports: Migraines Dermatologic: Reports: Psoriasis Oncologic: Reports: Breast, Ovarian, Skin - Tobacco Use Tobacco Use Status *Q: Current Every Day Tobacco User Years of Tobacco use: 13 Packs/Tins Daily: 1 - Caffeine Use Caffeine Use: Reports: None - Recreational Drug Use Recreational Drug Use: Yes Recreational Drug Type: Reports: Amphetamines (Speed), Marijuana/Hashish, Methamphetamine, Opium ED ROS GENERAL - Review of Systems Review Of Systems: See Below Constitutional: Reports: Decreased Appetite. Denies: Fever HEENT: Reports: No Symptoms Respiratory: Reports: Other ("hurts" to breath d/t worsens abdominal pain) Cardiovascular: Reports: No Symptoms Endocrine: Reports: No Symptoms GI/Abdominal: Reports: Abdominal Pain, Decreased Appetite, Distension, Nausea, Vomiting. Denies: Constipation, Diarrhea, Flatus, Hematemesis : Reports: No Symptoms. Denies: Dysuria, Flank Pain Musculoskeletal: Reports: No Symptoms Skin: Reports: No Symptoms Neurological: Reports: No Symptoms Psychiatric: Reports: No Symptoms Hematologic/Lymphatic: Reports: No Symptoms Immunologic: Reports: No Symptoms ED EXAM, GI/ABD - Physical Exam Exam: See Below Exam Limited By: No Limitations General Appearance: Alert, Anxious, Moderate Distress Respiratory/Chest: No Respiratory Distress, Lungs Clear, Normal Breath Sounds, No Accessory Muscle Use, Chest Non-Tender Cardiovascular: Normal Peripheral Pulses GI/Abdominal Exam: Soft, No Abnormal Bruit, No Mass, Pelvis Stable, Distended, Tender (generalized throughout. Worse on right.), Abnormal Bowel Sounds (hypoactive throughout). No: Rigid Neurological: Alert, Oriented, CN II-XII Intact, Normal Cognition, Normal Gait, Normal Reflexes, No Motor/Sensory Deficits Psychiatric: Normal Affect, Anxious Skin Exam: Warm, Dry, Intact, Normal Color, No Rash Course - Vital Signs Last Recorded V/S: Last Vital Signs Temp 98.2 F 12/03/20 11:13 Pulse 84 12/03/20 11:13 Resp 12 12/03/20 11:13 BP 123/73 12/03/20 11:13 Pulse Ox 96 12/03/20 11:13 - Orders/Labs/Meds Orders: Active Orders 24 hr Category Date Time Status Sodium Chloride 0.9% [Saline Flush] Med 12/02/20 19:32 Active 10 ml FLUSH ASDIRECTED PRN Peripheral IV Insertion Adult [OM.PC] Stat Oth 12/02/20 19:33 Ordered Medication Orders Enoxaparin Sodium (Enoxaparin 40 Mg/0.4 Ml Syringe) 40 mg SUBCUT DAILY [facility] Last Admin: 12/03/20 09:31 Dose: 40 mg Documented by: LATRICE Lactated Ringer's (Ringers, Lactated) 1,000 mls @ 125 mls/hr IV ASDIRECTED FABIENNE Last Admin: 12/03/20 03:01 Dose: 125 mls/hr Documented by: CHAUNCEY Promethazine HCl 6.25 mg/ (Sodium Chloride) 50.25 mls @ 100 mls/hr IV Q6H PRN PRN Reason: Nausea/Vomiting Morphine Sulfate (Morphine 2 Mg/Ml Syringe) 2 mg IVPUSH Q2H PRN PRN Reason: Pain (severe 7-10) Stop: 12/03/20 21:11 Last Admin: 12/03/20 12:36 Dose: 2 mg Documented by: Admin: 12/03/20 07:47 Dose: 2 mg Documented by: Admin: 12/03/20 02:58 Dose: 2 mg Documented by: Admin: 12/02/20 22:55 Dose: 2 mg Documented by: CHAUNCEY Ondansetron HCl (Ondansetron 4 Mg/2 Ml Sdv) 4 mg IV Q4H PRN PRN Reason: Nausea/Vomiting Sodium Chloride (Sodium Chloride 0.9% 10 Ml Syringe) 10 ml FLUSH ASDIRECTED PRN PRN Reason: Keep Vein Open Last Admin: 12/02/20 20:01 Dose: 10 ml Documented by: GREGORIO Labs: Laboratory Tests 12/02/20 12/02/20 12/02/20 Range/Units 20:02 20:02 20:02 WBC 13.04 H (3.98-10.04) K/mm3 RBC 4.64 (3.98-5.22) M/mm3 Hgb 13.3 (11.2-15.7) gm/dl Hct 40.8 (34.1-44.9) % MCV 87.9 (79.4-94.8) fl MCH 28.7 (25.6-32.2) pg MCHC 32.6 (32.2-35.5) g/dl RDW Std Deviation 48.2 H (36.4-46.3) fL Plt Count 166 L (182-369) K/mm3 MPV 10.0 (9.4-12.3) fl Neut % (Auto) 88.7 H (34.0-71.1) % Lymph % (Auto) 7.8 L (19.3-51.7) % [place] % (Auto) 2.4 L (4.7-12.5) % Eos % (Auto) 0.8 (0.7-5.8) Baso % (Auto) 0.1 (0.1-1.2) % Neut # (Auto) 11.58 H (1.56-6.13) K/mm3 Lymph # (Auto) 1.02 L (1.18-3.74) K/mm3 [place] # (Auto) 0.31 (0.24-0.36) K/mm3 Eos # (Auto) 0.10 (0.04-0.36) K/mm3 Baso # (Auto) 0.01 (0.01-0.08) K/mm3 Manual Slide Review Abnormal smear Sodium 139 (136-145) mEq/L Potassium 3.6 (3.5-5.1) mEq/L Chloride 100 (98-107) mEq/L Carbon Dioxide 30 (21-32) mEq/L Anion Gap 12.6 (5-15) BUN 10 (7-18) mg/dL Creatinine 0.9 (0.55-1.02) mg/dL Est Cr Clr Drug Dosing 78.69 mL/min Estimated GFR (MDRD) > 60 (>60) mL/min BUN/Creatinine Ratio 11.1 L (14-18) Glucose 111 H (70-99) mg/dL Calcium 9.0 (8.5-10.1) mg/dL Total Bilirubin 0.5 (0.2-1.0) mg/dL AST 15 (15-37) U/L ALT 24 (14-59) U/L Alkaline Phosphatase 82 (46-116) U/L C-Reactive Protein 39.9 H* (<1.0) mg/dL Total Protein 7.0 (6.4-8.2) g/dl Albumin 3.3 L (3.4-5.0) g/dl Globulin 3.7 gm/dL Albumin/Globulin Ratio 0.9 L (1-2) SARS-CoV-2 RNA (YOSI) Negative (NEGATIVE) Meds: Medications Generic Name Dose Route Start Last Admin Trade Name Freq PRN Reason Stop Dose Admin Enoxaparin Sodium 40 mg 12/03/20 09:00 12/03/20 09:31 Enoxaparin 40 Mg/0.4 Ml Syringe SUBCUT 40 mg DAILY FABIENNE Administration Lactated Ringer's 1,000 mls @ 125 mls/hr 12/02/20 21:15 12/03/20 03:01 Ringers, Lactated IV 125 mls/hr ASDIRECTED FABIENNE Administration Promethazine HCl 6.25 mg/ 50.25 mls @ 100 mls/hr 12/02/20 21:09 Sodium Chloride IV Q6H PRN Nausea/Vomiting Morphine Sulfate 2 mg 12/02/20 21:09 12/03/20 12:36 Morphine 2 Mg/Ml Syringe IVPUSH 12/03/20 21:11 2 mg Q2H PRN Administration Pain (severe 7-10) Ondansetron HCl 4 mg 12/02/20 21:09 Ondansetron 4 Mg/2 Ml Sdv IV Q4H PRN Nausea/Vomiting Sodium Chloride 10 ml 12/02/20 19:32 12/02/20 20:01 Sodium Chloride 0.9% 10 Ml Syringe FLUSH 10 ml ASDIRECTED PRN Administration Keep Vein Open Discontinued Medications Generic Name Dose Route Start Last Admin Trade Name Freq PRN Reason Stop Dose Admin Hydromorphone HCl 0.5 mg 12/02/20 19:33 12/02/20 20:13 Hydromorphone 0.5 Mg/0.5 Ml Syringe IVPUSH 12/02/20 19:34 Not Given ONETIME ONE Hydromorphone HCl 1 mg 12/02/20 19:34 12/02/20 19:54 Hydromorphone 1 Mg/Ml Syringe IVPUSH 12/02/20 19:35 1 mg ONETIME ONE Administration Sodium Chloride 1,000 mls @ 150 mls/hr 12/02/20 19:33 12/02/20 19:57 Normal Saline IV 12/03/20 02:12 150 mls/hr NOW STA Administration Magnesium Sulfate 2 gm/ Premix 50 mls @ 25 mls/hr 12/03/20 09:15 12/03/20 09:39 IV 12/03/20 11:14 25 mls/hr ONETIME ONE Administration Potassium Chloride 10 meq/ 100 mls @ 100 mls/hr 12/03/20 09:15 12/03/20 11:00 Premix IV 12/03/20 11:14 100 mls/hr Q1H FABIENNE Administration - Re-Assessments/Exams Free Text/Narrative Re-Assessment/Exam: Patient is a 25-year-old female presenting to the emergency department with complaints of worsening of abdominal pain. She was evaluated in this emergency department earlier this morning. CT imaging was completed at that time and suggested gastroenteritis versus possible partial small bowel obstruction. Reports that she has been unable to keep fluids down. She has not been passing gas nor has she had any form of bowel movement. Complains of diffuse generalized abdominal pain worsened with deep breathing and worse on the right side. On exam, bowel sounds are hypoactive throughout. She is mildly distended and tender throughout her abdomen. I have ordered repeat blood work, fluids of normal saline 150 mill per hour and Dilaudid 1 mg IV. She did take a Zofran ODT in the room prior to me coming into the room. I did call and speak with the general surgeon on-call, Dr. Benites. He recommended that we do an abdomen upright x-ray. States that she had oral contrast earlier today and if she has a bowel obstruction, it will not have moved into her colon. I have ordered abdomen flat and upright to be completed. 12/02/202014 X-ray of the abdomen flat and upright x-ray reviewed by myself and Dr. Reynolds shows contrast within the colon; however she does have numerous air-fluid levels as well as dilated loops of small bowel suspicious for partial small bowel obstruction. Results were discussed with Dr. Ro. He will admit the patient into observation. 12/02/20 20:59 Dr. Ro was here to see the patient. He will write admission orders for observation. Departure - Departure Time of Disposition: 20:15 Disposition: Refer to Observation Condition: Good Clinical Impression: Partial small bowel obstruction Vomiting Qualifiers: Vomiting type: unspecified Vomiting Intractability: non-intractable Nausea presence: with nausea Qualified Code(s): R11.2 - Nausea with vomiting, unspecified Abdominal pain Qualifiers: Abdominal location: lower abdomen, unspecified Qualified Code(s): R10.30 - Lower abdominal pain, unspecified - Discharge Information Sepsis Event Note (ED) - Evaluation Sepsis Screening Result: No Definite Risk - My Orders Last 24 Hours: My Active Orders 12/02/20 19:32 Sodium Chloride 0.9% [Saline Flush] 10 ml FLUSH ASDIRECTED PRN 12/02/20 19:33 Peripheral IV Insertion Adult [OM.PC] Stat - Assessment/Plan Last 24 Hours: My Active Orders 12/02/20 19:32 Sodium Chloride 0.9% [Saline Flush] 10 ml FLUSH ASDIRECTED PRN 12/02/20 19:33 Peripheral IV Insertion Adult [OM.PC] Stat
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
[2020-12-02] MEDS ORDERED: Promethazine 6.25 MG in Sodium Chloride 0.9% 50 ML IV PRN (21:09)
[2020-12-02] MEDS ORDERED: Lactated Ringers 1,000 ML IV SCH (21:15)
[2020-12-02] MEDS: Morphine 2 MG/ML SYRINGE IVPUSH PRN (22:55)
[2020-12-03] MEDS: Morphine 2 MG/ML SYRINGE IVPUSH PRN ×6 (02:58→21:32)
--- NOTE | 2020-12-03 08:24 | CR ---
Abdomen: Supine and upright views of the abdomen were obtained. Comparison: No prior abdominal x-ray is available, previous CT abdomen and pelvis study of 12/02/20 is available. Contrast and air are noted within colon. There are several loops of gas-dilated small bowel being seen. Findings are most likely due to either small bowel ileus or partial small bowel obstruction. No free air is seen. Bony structures are unremarkable. Impression: 1. Abnormal bowel gas pattern raising the possibility of small bowel ileus from gastroenteritis versus a partial small bowel obstruction. Please correlate with the patient's symptoms. 2. Gas and air are noted within the colon. Diagnostic code #3
[2020-12-03] MEDS ORDERED: Enoxaparin 30 MG/0.3 ML Syringe SUBCUT SCH (09:00)
[2020-12-03] MEDS ORDERED: Magnesium Sulfate/Water 2 GM in Premix Bag 1 BAG IV ONE (09:15)
--- NOTE | 2020-12-03 09:27 | PCM.PN ---
- General Info Date of Service: 12/03/20 Admission Dx/Problem (Free Text): Abdominal pain Subjective Update: No nausea or vomiting overnight. slept well. urinating well. Functional Status: Reports: Pain Controlled, Ambulating, Urinating - Review of Systems General: Reports: No Symptoms HEENT: Reports: No Symptoms Pulmonary: Reports: No Symptoms Cardiovascular: Reports: No Symptoms Gastrointestinal: Reports: Abdominal Pain Genitourinary: Reports: No Symptoms Musculoskeletal: Reports: No Symptoms Skin: Reports: No Symptoms Neurological: Reports: No Symptoms - Patient Data Vitals - Most Recent: Last Vital Signs Temp 98.2 F 12/03/20 03:03 Pulse 97 12/03/20 03:03 Resp 17 12/03/20 03:03 BP 127/76 12/03/20 03:03 Pulse Ox 96 12/03/20 03:03 Weight - Most Recent: 57.652 kg I&O - Last 24 Hours: Intake & Output 12/02/20 12/03/20 12/03/20 22:59 06:59 14:59 Intake Total 878 Output Total 700 Balance 178 Lab Results Last 24 Hours: Laboratory Results - last 24 hr 12/02/20 12/02/20 12/02/20 Range/Units 20:02 20:02 20:02 WBC 13.04 H (3.98-10.04) K/mm3 RBC 4.64 (3.98-5.22) M/mm3 Hgb 13.3 (11.2-15.7) gm/dl Hct 40.8 (34.1-44.9) % MCV 87.9 (79.4-94.8) fl MCH 28.7 (25.6-32.2) pg MCHC 32.6 (32.2-35.5) g/dl RDW Std Deviation 48.2 H (36.4-46.3) fL Plt Count 166 L (182-369) K/mm3 MPV 10.0 (9.4-12.3) fl Neut % (Auto) 88.7 H (34.0-71.1) % Lymph % (Auto) 7.8 L (19.3-51.7) % [place] % (Auto) 2.4 L (4.7-12.5) % Eos % (Auto) 0.8 (0.7-5.8) Baso % (Auto) 0.1 (0.1-1.2) % Neut # (Auto) 11.58 H (1.56-6.13) K/mm3 Lymph # (Auto) 1.02 L (1.18-3.74) K/mm3 [place] # (Auto) 0.31 (0.24-0.36) K/mm3 Eos # (Auto) 0.10 (0.04-0.36) K/mm3 Baso # (Auto) 0.01 (0.01-0.08) K/mm3 Manual Slide Review Abnormal smear Sodium 139 (136-145) mEq/L Potassium 3.6 (3.5-5.1) mEq/L Chloride 100 (98-107) mEq/L Carbon Dioxide 30 (21-32) mEq/L Anion Gap 12.6 (5-15) BUN 10 (7-18) mg/dL Creatinine 0.9 (0.55-1.02) mg/dL Est Cr Clr Drug Dosing 78.69 mL/min Estimated GFR (MDRD) > 60 (>60) mL/min BUN/Creatinine Ratio 11.1 L (14-18) Glucose 111 H (70-99) mg/dL Calcium 9.0 (8.5-10.1) mg/dL Phosphorus (2.6-4.7) mg/dL Magnesium (1.8-2.4) mg/dL Total Bilirubin 0.5 (0.2-1.0) mg/dL AST 15 (15-37) U/L ALT 24 (14-59) U/L Alkaline Phosphatase 82 (46-116) U/L C-Reactive Protein 39.9 H* (<1.0) mg/dL Total Protein 7.0 (6.4-8.2) g/dl Albumin 3.3 L (3.4-5.0) g/dl Globulin 3.7 gm/dL Albumin/Globulin Ratio 0.9 L (1-2) SARS-CoV-2 RNA (YOSI) Negative (NEGATIVE) 12/03/20 12/03/20 Range/Units 05:25 05:25 WBC 8.22 (3.98-10.04) K/mm3 RBC 4.31 (3.98-5.22) M/mm3 Hgb 12.1 (11.2-15.7) gm/dl Hct 38.4 (34.1-44.9) % MCV 89.1 (79.4-94.8) fl MCH 28.1 (25.6-32.2) pg MCHC 31.5 L (32.2-35.5) g/dl RDW Std Deviation 49.3 H (36.4-46.3) fL Plt Count 158 L (182-369) K/mm3 MPV 10.3 (9.4-12.3) fl Neut % (Auto) 76.0 H (34.0-71.1) % Lymph % (Auto) 17.3 L (19.3-51.7) % [place] % (Auto) 4.9 (4.7-12.5) % Eos % (Auto) 1.5 (0.7-5.8) Baso % (Auto) 0.1 (0.1-1.2) % Neut # (Auto) 6.25 H (1.56-6.13) K/mm3 Lymph # (Auto) 1.42 (1.18-3.74) K/mm3 [place] # (Auto) 0.40 H (0.24-0.36) K/mm3 Eos # (Auto) 0.12 (0.04-0.36) K/mm3 Baso # (Auto) 0.01 (0.01-0.08) K/mm3 Manual Slide Review Sodium 139 (136-145) mEq/L Potassium 3.6 (3.5-5.1) mEq/L Chloride 104 (98-107) mEq/L Carbon Dioxide 27 (21-32) mEq/L Anion Gap 11.6 (5-15) BUN 9 (7-18) mg/dL Creatinine 0.7 (0.55-1.02) mg/dL Est Cr Clr Drug Dosing 106.09 mL/min Estimated GFR (MDRD) > 60 (>60) mL/min BUN/Creatinine Ratio 12.9 L (14-18) Glucose 85 (70-99) mg/dL Calcium 8.7 (8.5-10.1) mg/dL Phosphorus 3.4 (2.6-4.7) mg/dL Magnesium 1.7 L (1.8-2.4) mg/dL Total Bilirubin (0.2-1.0) mg/dL AST (15-37) U/L ALT (14-59) U/L Alkaline Phosphatase (46-116) U/L C-Reactive Protein (<1.0) mg/dL Total Protein (6.4-8.2) g/dl Albumin (3.4-5.0) g/dl Globulin gm/dL Albumin/Globulin Ratio (1-2) SARS-CoV-2 RNA (YOSI) (NEGATIVE) Med Orders - Current: Current Medications Enoxaparin Sodium (Enoxaparin 40 Mg/0.4 Ml Syringe) 40 mg SUBCUT DAILY [facility]END[facility] TO [facility] Lactated Ringer's (Ringers, Lactated) 1,000 mls @ 125 mls/hr IV ASDIRECTED FABIENNE Last Admin: 12/03/20 03:01 Dose: 125 mls/hr Documented by: Promethazine HCl 6.25 mg/ (Sodium Chloride) 50.25 mls @ 100 mls/hr IV Q6H PRN PRN Reason: Nausea/Vomiting Magnesium Sulfate 2 gm/ Premix 50 mls @ 25 mls/hr IV Q1H FABIENNE Potassium Chloride 10 meq/ (Premix) 100 mls @ 100 mls/hr IV Q1H [facility] Stop: 12/03/20 11:14 Morphine Sulfate (Morphine 2 Mg/Ml Syringe) 2 mg IVPUSH Q2H PRN PRN Reason: Pain (severe 7-10) Stop: 12/03/20 21:11 Last Admin: 12/03/20 07:47 Dose: 2 mg Documented by: Ondansetron HCl (Ondansetron 4 Mg/2 Ml Sdv) 4 mg IV Q4H PRN PRN Reason: Nausea/Vomiting Sodium Chloride (Sodium Chloride 0.9% 10 Ml Syringe) 10 ml FLUSH ASDIRECTED PRN PRN Reason: Keep Vein Open Last Admin: 12/02/20 20:01 Dose: 10 ml Documented by: Discontinued Medications Hydromorphone HCl (Hydromorphone 0.5 Mg/0.5 Ml Syringe) 0.5 mg IVPUSH ONETIME ONE Stop: 12/02/20 19:34 Last Admin: 12/02/20 20:13 Dose: Not Given Documented by: Hydromorphone HCl (Hydromorphone 1 Mg/Ml Syringe) 1 mg IVPUSH ONETIME ONE Stop: 12/02/20 19:35 Last Admin: 12/02/20 19:54 Dose: 1 mg Documented by: Sodium Chloride (Normal Saline) 1,000 mls @ 150 mls/hr IV NOW STA Stop: 12/03/20 02:12 Last Admin: 12/02/20 19:57 Dose: 150 mls/hr Documented by: - Exam General: Alert, Oriented, Cooperative Lungs: Clear to Auscultation, Normal Respiratory Effort Cardiovascular: Regular Rate, Regular Rhythm GI/Abdominal Exam: Soft, No Organomegaly, No Distention, Tender (diffusely) - Patient Data Lab Results Last 24 hrs: Laboratory Results - last 24 hr 12/02/20 12/02/20 12/02/20 Range/Units 20:02 20:02 20:02 WBC 13.04 H (3.98-10.04) K/mm3 RBC 4.64 (3.98-5.22) M/mm3 Hgb 13.3 (11.2-15.7) gm/dl Hct 40.8 (34.1-44.9) % MCV 87.9 (79.4-94.8) fl MCH 28.7 (25.6-32.2) pg MCHC 32.6 (32.2-35.5) g/dl RDW Std Deviation 48.2 H (36.4-46.3) fL Plt Count 166 L (182-369) K/mm3 MPV 10.0 (9.4-12.3) fl Neut % (Auto) 88.7 H (34.0-71.1) % Lymph % (Auto) 7.8 L (19.3-51.7) % [place] % (Auto) 2.4 L (4.7-12.5) % Eos % (Auto) 0.8 (0.7-5.8) Baso % (Auto) 0.1 (0.1-1.2) % Neut # (Auto) 11.58 H (1.56-6.13) K/mm3 Lymph # (Auto) 1.02 L (1.18-3.74) K/mm3 [place] # (Auto) 0.31 (0.24-0.36) K/mm3 Eos # (Auto) 0.10 (0.04-0.36) K/mm3 Baso # (Auto) 0.01 (0.01-0.08) K/mm3 Manual Slide Review Abnormal smear Sodium 139 (136-145) mEq/L Potassium 3.6 (3.5-5.1) mEq/L Chloride 100 (98-107) mEq/L Carbon Dioxide 30 (21-32) mEq/L Anion Gap 12.6 (5-15) BUN 10 (7-18) mg/dL Creatinine 0.9 (0.55-1.02) mg/dL Est Cr Clr Drug Dosing 78.69 mL/min Estimated GFR (MDRD) > 60 (>60) mL/min BUN/Creatinine Ratio 11.1 L (14-18) Glucose 111 H (70-99) mg/dL Calcium 9.0 (8.5-10.1) mg/dL Phosphorus (2.6-4.7) mg/dL Magnesium (1.8-2.4) mg/dL Total Bilirubin 0.5 (0.2-1.0) mg/dL AST 15 (15-37) U/L ALT 24 (14-59) U/L Alkaline Phosphatase 82 (46-116) U/L C-Reactive Protein 39.9 H* (<1.0) mg/dL Total Protein 7.0 (6.4-8.2) g/dl Albumin 3.3 L (3.4-5.0) g/dl Globulin 3.7 gm/dL Albumin/Globulin Ratio 0.9 L (1-2) SARS-CoV-2 RNA (YOSI) Negative (NEGATIVE) 12/03/20 12/03/20 Range/Units 05:25 05:25 WBC 8.22 (3.98-10.04) K/mm3 RBC 4.31 (3.98-5.22) M/mm3 Hgb 12.1 (11.2-15.7) gm/dl Hct 38.4 (34.1-44.9) % MCV 89.1 (79.4-94.8) fl MCH 28.1 (25.6-32.2) pg MCHC 31.5 L (32.2-35.5) g/dl RDW Std Deviation 49.3 H (36.4-46.3) fL Plt Count 158 L (182-369) K/mm3 MPV 10.3 (9.4-12.3) fl Neut % (Auto) 76.0 H (34.0-71.1) % Lymph % (Auto) 17.3 L (19.3-51.7) % [place] % (Auto) 4.9 (4.7-12.5) % Eos % (Auto) 1.5 (0.7-5.8) Baso % (Auto) 0.1 (0.1-1.2) % Neut # (Auto) 6.25 H (1.56-6.13) K/mm3 Lymph # (Auto) 1.42 (1.18-3.74) K/mm3 [place] # (Auto) 0.40 H (0.24-0.36) K/mm3 Eos # (Auto) 0.12 (0.04-0.36) K/mm3 Baso # (Auto) 0.01 (0.01-0.08) K/mm3 Manual Slide Review Sodium 139 (136-145) mEq/L Potassium 3.6 (3.5-5.1) mEq/L Chloride 104 (98-107) mEq/L Carbon Dioxide 27 (21-32) mEq/L Anion Gap 11.6 (5-15) BUN 9 (7-18) mg/dL Creatinine 0.7 (0.55-1.02) mg/dL Est Cr Clr Drug Dosing 106.09 mL/min Estimated GFR (MDRD) > 60 (>60) mL/min BUN/Creatinine Ratio 12.9 L (14-18) Glucose 85 (70-99) mg/dL Calcium 8.7 (8.5-10.1) mg/dL Phosphorus 3.4 (2.6-4.7) mg/dL Magnesium 1.7 L (1.8-2.4) mg/dL Total Bilirubin (0.2-1.0) mg/dL AST (15-37) U/L ALT (14-59) U/L Alkaline Phosphatase (46-116) U/L C-Reactive Protein (<1.0) mg/dL Total Protein (6.4-8.2) g/dl Albumin (3.4-5.0) g/dl Globulin gm/dL Albumin/Globulin Ratio (1-2) SARS-CoV-2 RNA (YOSI) (NEGATIVE) Result Diagrams: 12/03/20 05:25 12/03/20 05:25 Sepsis Event Note - Evaluation Sepsis Screening Result: No Definite Risk - Focused Exam Vital Signs: Vital Signs Temp Pulse Resp BP Pulse Ox 12/03/20 03:03 98.2 F 97 17 127/76 96 - Problem List Review Problem List Initiated/Reviewed/Updated: No - My Orders Last 24 Hours: My Active Orders 12/02/20 Dinner Nothing per Oral Now Diet [DIET] 12/02/20 21:09 Oxygen Therapy [RC] PRN Up ad Alcira [RC] ASDIRECTED VTE/DVT Education [RC] PER UNIT ROUTINE Vital Signs [RC] Q4H Morphine 2 mg IVPUSH Q2H PRN Ondansetron [Zofran] 4 mg IV Q4H PRN Promethazine [Phenergan] 6.25 mg Sodium Chloride 0.9% [Normal Saline] 50 ml IV Q6H Resuscitation Status Routine 12/02/20 21:10 Sequential Compression Device [OM.PC] Per Unit Routine 12/02/20 21:11 Antiembolic Devices [RC] PER UNIT ROUTINE 12/02/20 21:15 Lactated Ringers [Ringers, Lactated] 1,000 ml IV ASDIRECTED 12/03/20 09:00 Enoxaparin [Lovenox] 40 mg SUBCUT DAILY 12/03/20 09:15 Magnesium Sulfate/Water [Magnesium Sulfate in Water 2 GM/50 ML] 2 gm Premix Bag 1 bag IV Q1H Potassium Chloride [KCl in Water 10 MEQ/100 ML] 10 meq Premix Bag 1 bag IV Q1H 12/04/20 05:11 BASIC METABOLIC PANEL,BMP [CHEM] AM CBC WITH AUTO DIFF [HEME] AM MAGNESIUM [CHEM] AM PHOSPHORUS [CHEM] AM 12/05/20 05:11 BASIC METABOLIC PANEL,BMP [CHEM] AM CBC WITH AUTO DIFF [HEME] AM MAGNESIUM [CHEM] AM PHOSPHORUS [CHEM] AM - Assessment Assessment:: HD1 abdominal pain with imaging findings of gastroenteritis vs pSBO. PO contrast has made it all the way to the colon. - Plan Plan:: Abdominal pain with CT findings of gastroenteritis vs pSBO. - continue NPO with IVF. Ice chips OK - replete Mag and K - Pain control - No NGT at this time. However, if emesis persists we will consider NGT - daily labs - monitor
[2020-12-03] MEDS: Potassium Chloride 10 MEQ in Premix Bag 1 BAG IV SCH ×2 (09:29→11:00)
[2020-12-03] MEDS: Enoxaparin 40 MG/0.4 ML Syringe SUBCUT SCH (09:31)
[2020-12-03] MEDS: Ondansetron 4 MG/2 ML SDV IV PRN (16:03)
[2020-12-03] MEDS ORDERED: D5 1/2 NS w/ 20 mEq/L KCl 1,000 ML IV SCH (19:45)
[2020-12-03] MEDS: Nicotine 14 MG/24 Hr Patch TRDERM SCH (19:57)
[2020-12-03] MEDS ORDERED: Dextrose 5%-0.45% NaCl 1,000 ML IV SCH ×2 (20:00→21:45)
[2020-12-04] MEDS: Morphine 2 MG/ML SYRINGE IVPUSH PRN ×5 (01:51→16:00)
[2020-12-04] MEDS: Nicotine 14 MG/24 Hr Patch TRDERM SCH (08:05)
[2020-12-04] MEDS: Enoxaparin 40 MG/0.4 ML Syringe SUBCUT SCH (08:05)
--- NOTE | 2020-12-04 10:11 | PCM.PN ---
- General Info Date of Service: 12/04/20 Admission Dx/Problem (Free Text): Abdominal pain Subjective Update: Abdominal pain has improved. no nausea or vomiting. she is ambulating Functional Status: Reports: Pain Controlled - Review of Systems General: Reports: No Symptoms HEENT: Reports: No Symptoms Pulmonary: Reports: No Symptoms Cardiovascular: Reports: No Symptoms Gastrointestinal: Reports: Abdominal Pain Genitourinary: Reports: No Symptoms Musculoskeletal: Reports: No Symptoms Skin: Reports: No Symptoms Neurological: Reports: No Symptoms Psychiatric: Reports: No Symptoms - Patient Data Vitals - Most Recent: Last Vital Signs Temp 97.9 F 12/04/20 05:27 Pulse 87 12/04/20 07:37 Resp 16 12/04/20 07:37 BP 121/91 H 12/04/20 07:37 Pulse Ox 98 12/04/20 07:37 Weight - Most Recent: 57.425 kg I&O - Last 24 Hours: Intake & Output 12/03/20 12/04/20 12/04/20 22:59 06:59 14:59 Intake Total 1150 1100 Output Total 750 152 Balance 400 948 Lab Results Last 24 Hours: Laboratory Results - last 24 hr 12/04/20 12/04/20 Range/Units 05:40 05:40 WBC 4.67 (3.98-10.04) K/mm3 RBC 4.28 (3.98-5.22) M/mm3 Hgb 12.2 (11.2-15.7) gm/dl Hct 37.9 (34.1-44.9) % MCV 88.6 (79.4-94.8) fl MCH 28.5 (25.6-32.2) pg MCHC 32.2 (32.2-35.5) g/dl RDW Std Deviation 46.8 H (36.4-46.3) fL Plt Count 156 L (182-369) K/mm3 MPV 10.7 (9.4-12.3) fl Neut % (Auto) 51.8 (34.0-71.1) % Lymph % (Auto) 38.5 (19.3-51.7) % [place] % (Auto) 7.1 (4.7-12.5) % Eos % (Auto) 2.4 (0.7-5.8) Baso % (Auto) 0.2 (0.1-1.2) % Neut # (Auto) 2.42 (1.56-6.13) K/mm3 Lymph # (Auto) 1.80 (1.18-3.74) K/mm3 [place] # (Auto) 0.33 (0.24-0.36) K/mm3 Eos # (Auto) 0.11 (0.04-0.36) K/mm3 Baso # (Auto) 0.01 (0.01-0.08) K/mm3 Sodium 142 (136-145) mEq/L Potassium 3.6 (3.5-5.1) mEq/L Chloride 105 (98-107) mEq/L Carbon Dioxide 28 (21-32) mEq/L Anion Gap 12.6 (5-15) BUN 9 (7-18) mg/dL Creatinine 0.7 (0.55-1.02) mg/dL Est Cr Clr Drug Dosing 106.09 mL/min Estimated GFR (MDRD) > 60 (>60) mL/min BUN/Creatinine Ratio 12.9 L (14-18) Glucose 93 (70-99) mg/dL Calcium 8.6 (8.5-10.1) mg/dL Phosphorus 4.5 (2.6-4.7) mg/dL Magnesium 1.8 (1.8-2.4) mg/dL Med Orders - Current: Current Medications Enoxaparin Sodium (Enoxaparin 40 Mg/0.4 Ml Syringe) 40 mg SUBCUT DAILY [facility] Last Admin: 12/04/20 08:05 Dose: 40 mg Documented by: Promethazine HCl 6.25 mg/ (Sodium Chloride) 50.25 mls @ 100 mls/hr IV Q6H PRN PRN Reason: Nausea/Vomiting Dextrose/Sodium Chloride (Dextrose 5%-1/2 Ns) 1,000 mls @ 100 mls/hr IV ASDIRECTED [facility] Last Admin: 12/03/20 22:45 Dose: 100 mls/hr Documented by: Miscellaneous Information (Remove Nicotine Patch) 1 ea TRDERM DAILY [facility] Morphine Sulfate (Morphine 2 Mg/Ml Syringe) 2 mg IVPUSH Q2H PRN PRN Reason: Pain Last Admin: 12/04/20 07:59 Dose: 2 mg Documented by: Nicotine (Nicotine 14 Mg/24 Hr Patch) 14 mg TRDERM DAILY [facility] Last Admin: 12/04/20 08:05 Dose: 14 mg Documented by: Ondansetron HCl (Ondansetron 4 Mg/2 Ml Sdv) 4 mg IV Q4H PRN PRN Reason: Nausea/Vomiting Last Admin: 12/03/20 16:03 Dose: 4 mg Documented by: Discontinued Medications Hydromorphone HCl (Hydromorphone 0.5 Mg/0.5 Ml Syringe) 0.5 mg IVPUSH ONETIME ONE Stop: 12/02/20 19:34 Last Admin: 12/02/20 20:13 Dose: Not Given Documented by: Hydromorphone HCl (Hydromorphone 1 Mg/Ml Syringe) 1 mg IVPUSH ONETIME ONE Stop: 12/02/20 19:35 Last Admin: 12/02/20 19:54 Dose: 1 mg Documented by: Sodium Chloride (Normal Saline) 1,000 mls @ 150 mls/hr IV NOW [facility] Stop: 12/03/20 02:12 Last Admin: 12/02/20 19:57 Dose: 150 mls/hr Documented by: Lactated Ringer's (Ringers, Lactated) 1,000 mls @ 125 mls/hr IV ASDIRECTED [facility] Last Admin: 12/03/20 03:01 Dose: 125 mls/hr Documented by: Magnesium Sulfate 2 gm/ Premix 50 mls @ 25 mls/hr IV ONETIME ONE Stop: 12/03/20 11:14 Last Admin: 12/03/20 09:39 Dose: 25 mls/hr Documented by: Potassium Chloride 10 meq/ (Premix) 100 mls @ 100 mls/hr IV Q1H [facility] Stop: 12/03/20 11:14 Last Admin: 12/03/20 11:00 Dose: 100 mls/hr Documented by: Potassium Chloride/Dextrose/Sod Cl (D5 1/2 Ns W/ 20 Meq/L Kcl) 1,000 mls @ 100 mls/hr IV ASDIRECTED [facility] Dextrose/Sodium Chloride (Dextrose 5%-1/2 Ns) 1,000 mls @ 100 mls/hr IV ASDIRECTED [facility] Morphine Sulfate (Morphine 2 Mg/Ml Syringe) 2 mg IVPUSH Q2H PRN PRN Reason: Pain (severe 7-10) Stop: 12/03/20 21:11 Last Admin: 12/03/20 21:32 Dose: 2 mg Documented by: Sodium Chloride (Sodium Chloride 0.9% 10 Ml Syringe) 10 ml FLUSH ASDIRECTED PRN PRN Reason: Keep Vein Open Last Admin: 12/02/20 20:01 Dose: 10 ml Documented by: - Exam General: Alert, Oriented, Cooperative Lungs: Clear to Auscultation, Normal Respiratory Effort Cardiovascular: Regular Rate, Regular Rhythm GI/Abdominal Exam: Soft, No Distention, Tender, Other (no rebound tenderness) - Patient Data Lab Results Last 24 hrs: Laboratory Results - last 24 hr 12/04/20 12/04/20 Range/Units 05:40 05:40 WBC 4.67 (3.98-10.04) K/mm3 RBC 4.28 (3.98-5.22) M/mm3 Hgb 12.2 (11.2-15.7) gm/dl Hct 37.9 (34.1-44.9) % MCV 88.6 (79.4-94.8) fl MCH 28.5 (25.6-32.2) pg MCHC 32.2 (32.2-35.5) g/dl RDW Std Deviation 46.8 H (36.4-46.3) fL Plt Count 156 L (182-369) K/mm3 MPV 10.7 (9.4-12.3) fl Neut % (Auto) 51.8 (34.0-71.1) % Lymph % (Auto) 38.5 (19.3-51.7) % [place] % (Auto) 7.1 (4.7-12.5) % Eos % (Auto) 2.4 (0.7-5.8) Baso % (Auto) 0.2 (0.1-1.2) % Neut # (Auto) 2.42 (1.56-6.13) K/mm3 Lymph # (Auto) 1.80 (1.18-3.74) K/mm3 [place] # (Auto) 0.33 (0.24-0.36) K/mm3 Eos # (Auto) 0.11 (0.04-0.36) K/mm3 Baso # (Auto) 0.01 (0.01-0.08) K/mm3 Sodium 142 (136-145) mEq/L Potassium 3.6 (3.5-5.1) mEq/L Chloride 105 (98-107) mEq/L Carbon Dioxide 28 (21-32) mEq/L Anion Gap 12.6 (5-15) BUN 9 (7-18) mg/dL Creatinine 0.7 (0.55-1.02) mg/dL Est Cr Clr Drug Dosing 106.09 mL/min Estimated GFR (MDRD) > 60 (>60) mL/min BUN/Creatinine Ratio 12.9 L (14-18) Glucose 93 (70-99) mg/dL Calcium 8.6 (8.5-10.1) mg/dL Phosphorus 4.5 (2.6-4.7) mg/dL Magnesium 1.8 (1.8-2.4) mg/dL Result Diagrams: 12/04/20 05:40 12/04/20 05:40 Sepsis Event Note - Evaluation Sepsis Screening Result: No Definite Risk - Focused Exam Vital Signs: Vital Signs Temp Pulse Resp BP Pulse Ox 12/04/20 07:37 87 16 121/91 H 98 12/04/20 05:27 97.9 F 81 18 122/87 98 12/04/20 01:22 97.7 F 67 17 115/79 97 - Problem List Review Problem List Initiated/Reviewed/Updated: No - My Orders Last 24 Hours: My Active Orders 12/03/20 19:45 Nicotine [Habitrol] 14 mg TRDERM DAILY 12/03/20 19:51 Enema [RC] ASDIRECTED 12/03/20 21:45 Dextrose 5%-0.45% NaCl [Dextrose 5%-1/2 NS] 1,000 ml IV ASDIRECTED 12/04/20 01:35 Morphine 2 mg IVPUSH Q2H PRN 12/04/20 Breakfast Clear Liquid Diet [DIET] 12/04/20 09:00 Remove Patch 1 ea TRDERM DAILY 12/05/20 05:11 BASIC METABOLIC PANEL,BMP [CHEM] AM CBC WITH AUTO DIFF [HEME] AM MAGNESIUM [CHEM] AM PHOSPHORUS [CHEM] AM - Assessment Assessment:: HD2 abdominal pain with imaging findings of gastroenteritis vs pSBO. PO contrast has made it all the way to the colon. - Plan Plan:: Abdominal pain with CT findings of gastroenteritis vs pSBO. - passing flatus. We will start clear liquids today. No BM yet - Pain control - labs now essentially normalized - monitor
[2020-12-04] MEDS ORDERED: Ibuprofen 600 MG Tab PO SCH (17:00)
[2020-12-04] MEDS: Acetaminophen 325 MG Tab PO PRN (20:37)
[2020-12-04] MEDS: Ondansetron 4 MG/2 ML SDV IV PRN (20:41)
[2020-12-04] MEDS: Ibuprofen 600 MG Tab PO PRN (21:02)
[2020-12-05] MEDS: Ondansetron 4 MG/2 ML SDV IV PRN (08:47)
[2020-12-05] MEDS: Enoxaparin 40 MG/0.4 ML Syringe SUBCUT SCH (08:47)
[2020-12-05] MEDS: Ibuprofen 600 MG Tab PO PRN (08:50)
[2020-12-05] MEDS: Nicotine 14 MG/24 Hr Patch TRDERM SCH (08:56)
--- NOTE | 2020-12-05 10:59 | PCM.PN ---
- General Info Date of Service: 12/05/20 Admission Dx/Problem (Free Text): Abdominal pain Subjective Update: Doing well, tolerated full liquids and regular diet. abdominal pain subsided significantly. Functional Status: Reports: Pain Controlled, Tolerating Diet, Ambulating, Urinating - Review of Systems General: Reports: No Symptoms HEENT: Reports: No Symptoms Pulmonary: Reports: No Symptoms Cardiovascular: Reports: No Symptoms Gastrointestinal: Reports: No Symptoms Genitourinary: Reports: No Symptoms Musculoskeletal: Reports: No Symptoms Skin: Reports: No Symptoms Neurological: Reports: No Symptoms Psychiatric: Reports: No Symptoms - Patient Data Vitals - Most Recent: Last Vital Signs Temp 98.2 F 12/05/20 09:02 Pulse 92 12/05/20 09:02 Resp 13 12/05/20 09:02 BP 126/75 12/05/20 09:02 Pulse Ox 100 12/05/20 09:02 Weight - Most Recent: 58.151 kg I&O - Last 24 Hours: Intake & Output 12/04/20 12/05/20 12/05/20 22:59 06:59 14:59 Intake Total 2980 1100 Balance 2980 1100 Lab Results Last 24 Hours: Laboratory Results - last 24 hr 12/05/20 12/05/20 Range/Units 05:50 05:50 WBC 4.65 (3.98-10.04) K/mm3 RBC 4.70 (3.98-5.22) M/mm3 Hgb 13.1 (11.2-15.7) gm/dl Hct 40.7 (34.1-44.9) % MCV 86.6 (79.4-94.8) fl MCH 27.9 (25.6-32.2) pg MCHC 32.2 (32.2-35.5) g/dl RDW Std Deviation 46.2 (36.4-46.3) fL Plt Count 207 (182-369) K/mm3 MPV 9.9 (9.4-12.3) fl Neut % (Auto) 57.6 (34.0-71.1) % Lymph % (Auto) 31.8 (19.3-51.7) % [place] % (Auto) 8.0 (4.7-12.5) % Eos % (Auto) 2.4 (0.7-5.8) Baso % (Auto) 0.2 (0.1-1.2) % Neut # (Auto) 2.68 (1.56-6.13) K/mm3 Lymph # (Auto) 1.48 (1.18-3.74) K/mm3 [place] # (Auto) 0.37 H (0.24-0.36) K/mm3 Eos # (Auto) 0.11 (0.04-0.36) K/mm3 Baso # (Auto) 0.01 (0.01-0.08) K/mm3 Sodium 143 (136-145) mEq/L Potassium 4.0 (3.5-5.1) mEq/L Chloride 106 (98-107) mEq/L Carbon Dioxide 26 (21-32) mEq/L Anion Gap 15.0 (5-15) BUN 4 L (7-18) mg/dL Creatinine 0.6 (0.55-1.02) mg/dL Est Cr Clr Drug Dosing 123.77 mL/min Estimated GFR (MDRD) > 60 (>60) mL/min BUN/Creatinine Ratio 6.7 L (14-18) Glucose 95 (70-99) mg/dL Calcium 9.1 (8.5-10.1) mg/dL Phosphorus 4.1 (2.6-4.7) mg/dL Magnesium 1.9 (1.8-2.4) mg/dL Med Orders - Current: Current Medications Acetaminophen (Acetaminophen 325 Mg Tab) 650 mg PO Q8H PRN PRN Reason: Pain Last Admin: 12/04/20 20:37 Dose: 650 mg Documented by: Enoxaparin Sodium (Enoxaparin 40 Mg/0.4 Ml Syringe) 40 mg SUBCUT DAILY [facility] Last Admin: 12/05/20 08:47 Dose: 40 mg Documented by: Promethazine HCl 6.25 mg/ (Sodium Chloride) 50.25 mls @ 100 mls/hr IV Q6H PRN PRN Reason: Nausea/Vomiting Ibuprofen (Ibuprofen 600 Mg Tab) 600 mg PO Q8H PRN PRN Reason: Pain Last Admin: 12/05/20 08:50 Dose: 600 mg Documented by: Miscellaneous Information (Remove Nicotine Patch) 1 ea TRDERM DAILY [facility] Last Admin: 12/05/20 08:47 Dose: 1 ea Documented by: Nicotine (Nicotine 14 Mg/24 Hr Patch) 14 mg TRDERM DAILY [facility] Last Admin: 12/05/20 08:56 Dose: Not Given Documented by: Ondansetron HCl (Ondansetron 4 Mg/2 Ml Sdv) 4 mg IV Q4H PRN PRN Reason: Nausea/Vomiting Last Admin: 12/05/20 08:47 Dose: 4 mg Documented by: Discontinued Medications Hydromorphone HCl (Hydromorphone 0.5 Mg/0.5 Ml Syringe) 0.5 mg IVPUSH ONETIME ONE Stop: 12/02/20 19:34 Last Admin: 12/02/20 20:13 Dose: Not Given Documented by: Hydromorphone HCl (Hydromorphone 1 Mg/Ml Syringe) 1 mg IVPUSH ONETIME ONE Stop: 12/02/20 19:35 Last Admin: 12/02/20 19:54 Dose: 1 mg Documented by: Sodium Chloride (Normal Saline) 1,000 mls @ 150 mls/hr IV NOW [facility] Stop: 12/03/20 02:12 Last Admin: 12/02/20 19:57 Dose: 150 mls/hr Documented by: Lactated Ringer's (Ringers, Lactated) 1,000 mls @ 125 mls/hr IV ASDIRECTED [facility] Last Admin: 12/03/20 03:01 Dose: 125 mls/hr Documented by: Magnesium Sulfate 2 gm/ Premix 50 mls @ 25 mls/hr IV ONETIME ONE Stop: 12/03/20 11:14 Last Admin: 12/03/20 09:39 Dose: 25 mls/hr Documented by: Potassium Chloride 10 meq/ (Premix) 100 mls @ 100 mls/hr IV Q1H [facility] Stop: 12/03/20 11:14 Last Admin: 12/03/20 11:00 Dose: 100 mls/hr Documented by: Potassium Chloride/Dextrose/Sod Cl (D5 1/2 Ns W/ 20 Meq/L Kcl) 1,000 mls @ 100 mls/hr IV ASDIRECTED [facility] Dextrose/Sodium Chloride (Dextrose 5%-1/2 Ns) 1,000 mls @ 100 mls/hr IV ASDIRECTED [facility] Dextrose/Sodium Chloride (Dextrose 5%-1/2 Ns) 1,000 mls @ 100 mls/hr IV ASDIRECTED [facility] Last Admin: 12/03/20 22:45 Dose: 100 mls/hr Documented by: Ibuprofen (Ibuprofen 600 Mg Tab) 600 mg PO Q8H [facility] Morphine Sulfate (Morphine 2 Mg/Ml Syringe) 2 mg IVPUSH Q2H PRN PRN Reason: Pain (severe 7-10) Stop: 12/03/20 21:11 Last Admin: 12/03/20 21:32 Dose: 2 mg Documented by: Morphine Sulfate (Morphine 2 Mg/Ml Syringe) 2 mg IVPUSH Q2H PRN PRN Reason: Pain Last Admin: 12/04/20 16:00 Dose: 2 mg Documented by: Sodium Chloride (Sodium Chloride 0.9% 10 Ml Syringe) 10 ml FLUSH ASDIRECTED PRN PRN Reason: Keep Vein Open Last Admin: 12/02/20 20:01 Dose: 10 ml Documented by: - Exam General: Alert, Oriented, Cooperative Lungs: Normal Respiratory Effort Cardiovascular: Regular Rate, Regular Rhythm, No Murmurs GI/Abdominal Exam: Soft, Tender (mildly) - Patient Data Lab Results Last 24 hrs: Laboratory Results - last 24 hr 12/05/20 12/05/20 Range/Units 05:50 05:50 WBC 4.65 (3.98-10.04) K/mm3 RBC 4.70 (3.98-5.22) M/mm3 Hgb 13.1 (11.2-15.7) gm/dl Hct 40.7 (34.1-44.9) % MCV 86.6 (79.4-94.8) fl MCH 27.9 (25.6-32.2) pg MCHC 32.2 (32.2-35.5) g/dl RDW Std Deviation 46.2 (36.4-46.3) fL Plt Count 207 (182-369) K/mm3 MPV 9.9 (9.4-12.3) fl Neut % (Auto) 57.6 (34.0-71.1) % Lymph % (Auto) 31.8 (19.3-51.7) % [place] % (Auto) 8.0 (4.7-12.5) % Eos % (Auto) 2.4 (0.7-5.8) Baso % (Auto) 0.2 (0.1-1.2) % Neut # (Auto) 2.68 (1.56-6.13) K/mm3 Lymph # (Auto) 1.48 (1.18-3.74) K/mm3 [place] # (Auto) 0.37 H (0.24-0.36) K/mm3 Eos # (Auto) 0.11 (0.04-0.36) K/mm3 Baso # (Auto) 0.01 (0.01-0.08) K/mm3 Sodium 143 (136-145) mEq/L Potassium 4.0 (3.5-5.1) mEq/L Chloride 106 (98-107) mEq/L Carbon Dioxide 26 (21-32) mEq/L Anion Gap 15.0 (5-15) BUN 4 L (7-18) mg/dL Creatinine 0.6 (0.55-1.02) mg/dL Est Cr Clr Drug Dosing 123.77 mL/min Estimated GFR (MDRD) > 60 (>60) mL/min BUN/Creatinine Ratio 6.7 L (14-18) Glucose 95 (70-99) mg/dL Calcium 9.1 (8.5-10.1) mg/dL Phosphorus 4.1 (2.6-4.7) mg/dL Magnesium 1.9 (1.8-2.4) mg/dL Result Diagrams: 12/05/20 05:50 12/05/20 05:50 Sepsis Event Note - Evaluation Sepsis Screening Result: No Definite Risk - Focused Exam Vital Signs: Vital Signs Temp Pulse Resp BP Pulse Ox 12/05/20 09:02 98.2 F 92 13 126/75 100 12/05/20 06:22 97.9 F 75 14 126/89 96 - Problem List Review Problem List Initiated/Reviewed/Updated: No - My Orders Last 24 Hours: My Active Orders 12/04/20 16:20 Acetaminophen [TylenoL] 650 mg PO Q8H PRN 12/04/20 16:38 Ibuprofen [Motrin] 600 mg PO Q8H PRN 12/05/20 Breakfast Regular Diet [DIET] 12/05/20 10:10 Ready for Discharge [RC] PER UNIT ROUTINE - Assessment Assessment:: HD3 abdominal pain with imaging findings of gastroenteritis vs pSBO. PO contrast has made it all the way to the colon. - Plan Plan:: Abdominal pain with CT findings of gastroenteritis vs pSBO. - tolerating reg diet and having bowel function. abd pain is minimal now - discharge to home today. follow up with PCP. Follow up with me PRN
--- NOTE | 2020-12-05 11:04 | PCM.DCSUM1 ---
Discharge Summary - Hospital Course Free Text/Narrative:: Patient came in after several days of diffuse abdominal pain, nausea and vomiting. CT did dhow findings suggesting of gastroenteritis or pSBO. Patient was admitted for bowel rest and hydration. Her bowels opened up within 48 hrs and tolerated reg diet. She was discharged to home in stable condition. Diagnosis: Stroke: No - Discharge Data Discharge Date: 12/05/20 Discharge Disposition: Home, Self-Care 01 Condition: Good - Referral to Home Health Primary Care Physician: PCP None - Patient Instructions Diet: Heart Healthy Diet Activity: As Tolerated Driving: May Drive Today Showering/Bathing: May Shower Notify Provider of: Fever, Increased Pain, Nausea and/or Vomiting - Discharge Plan *PRESCRIPTION DRUG MONITORING PROGRAM REVIEWED*: Not Applicable *COPY OF PRESCRIPTION DRUG MONITORING REPORT IN PATIENT LUCY: Not Applicable Home Medications: Home Meds Acetaminophen [Tylenol] 2 tab PO ASDIRECTED PRN 08/07/19 [History] Multivitamin [Multi-Vitamin Daily] 1 tab PO DAILY 08/07/19 [History] Dicyclomine [Bentyl] 10 mg PO TID PRN #20 cap 12/02/20 [Rx] Ondansetron [Zofran ODT] 4 mg PO Q6H PRN #20 tab.dis 12/02/20 [Rx] Oxygen Therapy Mode: Room Air Patient Handouts: Bowel Obstruction, [id number], Steps to Quit Smoking Forms: ED Department Discharge Referrals: Erika Alcantara NP [Nurse Practitioner] - 12/18/20 12:00 pm (This appt. is to establish care and follow up hospital visit. Check in at 11:40) Cristina Ro MD [Physician] - (PRN) - Discharge Summary/Plan Comment DC Time >30 min.: No - General Info Date of Service: 12/05/20 Admission Dx/Problem (Free Text: Abdominal pain Subjective Update: no nausea, tolerating reg diet, having bowel movements Functional Status: Reports: Pain Controlled, Tolerating Diet, Ambulating - Review of Systems General: Reports: No Symptoms HEENT: Reports: No Symptoms Pulmonary: Reports: No Symptoms Cardiovascular: Reports: No Symptoms Gastrointestinal: Reports: Abdominal Pain Genitourinary: Reports: No Symptoms Musculoskeletal: Reports: No Symptoms Skin: Reports: No Symptoms Neurological: Reports: No Symptoms - Patient Data Vitals - Most Recent: Last Vital Signs Temp 98.2 F 12/05/20 09:02 Pulse 92 12/05/20 09:02 Resp 13 12/05/20 09:02 BP 126/75 12/05/20 09:02 Pulse Ox 100 12/05/20 09:02 Weight - Most Recent: 58.151 kg I&O - Last 24 hours: Intake & Output 12/04/20 12/05/20 12/05/20 22:59 06:59 14:59 Intake Total 2980 1100 440 Balance 2980 1100 440 Lab Results - Last 24 hrs: Laboratory Results - last 24 hr 12/05/20 12/05/20 Range/Units 05:50 05:50 WBC 4.65 (3.98-10.04) K/mm3 RBC 4.70 (3.98-5.22) M/mm3 Hgb 13.1 (11.2-15.7) gm/dl Hct 40.7 (34.1-44.9) % MCV 86.6 (79.4-94.8) fl MCH 27.9 (25.6-32.2) pg MCHC 32.2 (32.2-35.5) g/dl RDW Std Deviation 46.2 (36.4-46.3) fL Plt Count 207 (182-369) K/mm3 MPV 9.9 (9.4-12.3) fl Neut % (Auto) 57.6 (34.0-71.1) % Lymph % (Auto) 31.8 (19.3-51.7) % [place] % (Auto) 8.0 (4.7-12.5) % Eos % (Auto) 2.4 (0.7-5.8) Baso % (Auto) 0.2 (0.1-1.2) % Neut # (Auto) 2.68 (1.56-6.13) K/mm3 Lymph # (Auto) 1.48 (1.18-3.74) K/mm3 [place] # (Auto) 0.37 H (0.24-0.36) K/mm3 Eos # (Auto) 0.11 (0.04-0.36) K/mm3 Baso # (Auto) 0.01 (0.01-0.08) K/mm3 Sodium 143 (136-145) mEq/L Potassium 4.0 (3.5-5.1) mEq/L Chloride 106 (98-107) mEq/L Carbon Dioxide 26 (21-32) mEq/L Anion Gap 15.0 (5-15) BUN 4 L (7-18) mg/dL Creatinine 0.6 (0.55-1.02) mg/dL Est Cr Clr Drug Dosing 123.77 mL/min Estimated GFR (MDRD) > 60 (>60) mL/min BUN/Creatinine Ratio 6.7 L (14-18) Glucose 95 (70-99) mg/dL Calcium 9.1 (8.5-10.1) mg/dL Phosphorus 4.1 (2.6-4.7) mg/dL Magnesium 1.9 (1.8-2.4) mg/dL Med Orders - Current: Current Medications Acetaminophen (Acetaminophen 325 Mg Tab) 650 mg PO Q8H PRN PRN Reason: Pain Last Admin: 12/04/20 20:37 Dose: 650 mg Documented by: Enoxaparin Sodium (Enoxaparin 40 Mg/0.4 Ml Syringe) 40 mg SUBCUT DAILY [facility] Last Admin: 12/05/20 08:47 Dose: 40 mg Documented by: Promethazine HCl 6.25 mg/ (Sodium Chloride) 50.25 mls @ 100 mls/hr IV Q6H PRN PRN Reason: Nausea/Vomiting Ibuprofen (Ibuprofen 600 Mg Tab) 600 mg PO Q8H PRN PRN Reason: Pain Last Admin: 12/05/20 08:50 Dose: 600 mg Documented by: Miscellaneous Information (Remove Nicotine Patch) 1 ea TRDERM DAILY [facility] Last Admin: 12/05/20 08:47 Dose: 1 ea Documented by: Nicotine (Nicotine 14 Mg/24 Hr Patch) 14 mg TRDERM DAILY [facility] Last Admin: 12/05/20 08:56 Dose: Not Given Documented by: Ondansetron HCl (Ondansetron 4 Mg/2 Ml Sdv) 4 mg IV Q4H PRN PRN Reason: Nausea/Vomiting Last Admin: 12/05/20 08:47 Dose: 4 mg Documented by: Discontinued Medications Hydromorphone HCl (Hydromorphone 0.5 Mg/0.5 Ml Syringe) 0.5 mg IVPUSH ONETIME ONE Stop: 12/02/20 19:34 Last Admin: 12/02/20 20:13 Dose: Not Given Documented by: Hydromorphone HCl (Hydromorphone 1 Mg/Ml Syringe) 1 mg IVPUSH ONETIME ONE Stop: 12/02/20 19:35 Last Admin: 12/02/20 19:54 Dose: 1 mg Documented by: Sodium Chloride (Normal Saline) 1,000 mls @ 150 mls/hr IV NOW [facility] Stop: 12/03/20 02:12 Last Admin: 12/02/20 19:57 Dose: 150 mls/hr Documented by: Lactated Ringer's (Ringers, Lactated) 1,000 mls @ 125 mls/hr IV ASDIRECTED [facility] Last Admin: 12/03/20 03:01 Dose: 125 mls/hr Documented by: Magnesium Sulfate 2 gm/ Premix 50 mls @ 25 mls/hr IV ONETIME ONE Stop: 12/03/20 11:14 Last Admin: 12/03/20 09:39 Dose: 25 mls/hr Documented by: Potassium Chloride 10 meq/ (Premix) 100 mls @ 100 mls/hr IV Q1H [facility] Stop: 12/03/20 11:14 Last Admin: 12/03/20 11:00 Dose: 100 mls/hr Documented by: Potassium Chloride/Dextrose/Sod Cl (D5 1/2 Ns W/ 20 Meq/L Kcl) 1,000 mls @ 100 mls/hr IV ASDIRECTED [facility] Dextrose/Sodium Chloride (Dextrose 5%-1/2 Ns) 1,000 mls @ 100 mls/hr IV ASDIRECTED [facility] Dextrose/Sodium Chloride (Dextrose 5%-1/2 Ns) 1,000 mls @ 100 mls/hr IV ASDIRECTED [facility] Last Admin: 12/03/20 22:45 Dose: 100 mls/hr Documented by: Ibuprofen (Ibuprofen 600 Mg Tab) 600 mg PO Q8H [facility] Morphine Sulfate (Morphine 2 Mg/Ml Syringe) 2 mg IVPUSH Q2H PRN PRN Reason: Pain (severe 7-10) Stop: 12/03/20 21:11 Last Admin: 12/03/20 21:32 Dose: 2 mg Documented by: Morphine Sulfate (Morphine 2 Mg/Ml Syringe) 2 mg IVPUSH Q2H PRN PRN Reason: Pain Last Admin: 12/04/20 16:00 Dose: 2 mg Documented by: Sodium Chloride (Sodium Chloride 0.9% 10 Ml Syringe) 10 ml FLUSH ASDIRECTED PRN PRN Reason: Keep Vein Open Last Admin: 12/02/20 20:01 Dose: 10 ml Documented by: - Exam General: Reports: Alert, Oriented, Cooperative Lungs: Reports: Clear to Auscultation, Normal Respiratory Effort Cardiovascular: Reports: Regular Rate, Regular Rhythm, No Murmurs GI/Abdominal Exam: Soft, Tender (mildly)
[2020-12-05] MEDS: Acetaminophen 325 MG Tab PO PRN (12:18)
[2020-12-05 12:52] VITALS: BP 146/87; PULSE 88
== END 2020-12-05 12:38 | disposition home or self-care (01) ==
LOC: JD.ED 18:55 → JD.MS 21:07
PROVIDERS: ADMIT Surgery; ATTEND Surgery
DX: R10.30 Lower abdominal pain, unspecified (principal); E05.90 Thyrotoxicosis, unspecified without thyrotoxic crisis or storm; F17.210 Nicotine dependence, cigarettes, uncomplicated; R11.2 Nausea with vomiting, unspecified; Z20.822 Contact with and (suspected) exposure to COVID-19; Z88.5 Allergy status to narcotic agent; Z88.8 Allergy status to other drugs, medicaments and biological substances; Z79.899 Other long term (current) drug therapy; Z98.890 Other specified postprocedural states
CPT/HCPCS: 36415; 74019; 80048; 80053; 83735; 84100; 85025; 86140; 87635; 96365; 96366; 96368; 96372; 96375; 96376; 99285; A9270; G0378; J1170; J1650; J2270; J2405; J3475; J3480; J7030; J7042; J7120; 96374; 99284; U0002